=== PATIENT | female | born 1975 | race Caucasian/White ===

== ENCOUNTER 2023-03-28 02:37 | Outpatient (CLI) | payer MEDICAID, SELFPAY ==
--- NOTE | 2023-03-28 07:15 | DI.US_ITS ---
Exam(s) US PELVIS TRANSVAGINAL EXAM: US PELVIS TRANSVAGINAL CLINICAL HISTORY: anatomy,irregular bleeding,n92.6 TECHNIQUE: Ultrasound of the pelvis was performed both transabdominal and transvaginal. COMPARISON: US PELVIS TRANSVAG from 09/16/2017 FINDINGS: UTERUS: Measures 11 cm length x 5 cm AP x 5 cm wide. Multiple relatively small uterine fibroids again noted.A mid anterior myometrium there is a 2 x 2.0 c m fibroid. Anterior fundal region there is a 2.4 x 2.4 cm partially calcified fibroid. In the poste rior myometrium there is a 2 x 2 cm fibroid and there is a 1.5 x 1.3 cm. Endometrial thickness measures 6 mm. There is small amount of fluid in the endometrium cavity and subtle suggestion of a 9 millimeter poly p CERVIX: There are no obvious nabothian cysts. Both ovaries were not visualized on this study. CUL-DE-SAC: No free fluid evident. IMPRESSION: 1. For uterine fibroids, 2 anteriorly into posteriorly, with measurements as above. 2. Small amount of fluid in the endometrial canal noted and there appears to be a possible polyp in t he endometrial canal measuring approximately 9 mm 3. Both ovaries were not able to be identified on this study. 4. No free fluid evident. DATA REPOSITORY:
--- NOTE | 2023-03-28 07:15 | DI.MAMMO_ITS ---
Exam(s) MAMMO SCREENING EXAM: MAMMO SCREENING CLINICAL HISTORY: screening,z12.39. TECHNIQUE: Bilateral full field digital CC and MLO mammographic images were obtained with 3D tomosyn thesis and utilizing computer aided detection (CAD). COMPARISON: Prior outside mammograms were reviewed. FINDINGS: There has been no significant change in the appearance and distribution of the fibroglandular tissue. There are no CAD designations. There are no new spiculated masses nor malignant appearing microcalcification groups. There is no significant architectural distortion nor skin thickening-retraction. IMPRESSION: No radiographic evidence of malignancy. BI-RADS Category 1 - Negative Breast Density - Category A - Almost entirely fatty Breast density Category C or D implies that the patient has dense breast tissue. Dense breast tissue can make it harder to find cancer on a mammogram. Dense breast tissue is also associated with an incr eased risk of breast cancer. This information about the result of the mammogram report was provided to the patient to raise their awareness. Use this report when you speak with the patient about their risks for breast cancer, which includes their family history. At that time, you may recommend additional screening tests (Ultrasoun d or MRI) as these tests may add significant information. A negative radiographic report should not delay biopsy if a dominant or clinically suspicious mass is present. Up to ten percent of cancers are not identified on mammography. A negative report may reinforce clinical impression. Adenosis and dense breasts may obscure an underlying neoplasm. False positive reports average 6 to 10%. Patient will receive a letter notifying them of these results.
== END 2023-03-28 02:57 ==
LOC: DI 02:38
PROVIDERS: PCP Nurse Practitioner Family; Visit Provider Obstetrics & Gynecology
DX: N92.6 Irregular menstruation, unspecified (principal); Z12.31 Encounter for screening mammogram for malignant neoplasm of breast; D25.9 Leiomyoma of uterus, unspecified; N85.8 Other specified noninflammatory disorders of uterus
CPT/HCPCS: 77063; 77067; 76830; 76856

== ENCOUNTER 2023-04-25 02:47 | Outpatient (CLI) | payer MEDICAID, SELFPAY ==
[2023-04-25 13:01] LABS: Abs Immature Grans 0.02 10^3/uL (0.0-0.06); Absolute Basophil Count 0.04 10^3/uL (0.0-0.2); Absolute Eosinophil Count 0.14 10^3/uL (0.0-0.7); Absolute Lymphocyte Count 2.26 10^3/uL (1.2-3.4); Absolute Monocyte Count 0.34 10^3/uL (0.1-0.8); Absolute Neutrophil Count 2.96 10^3/uL (1.2-6.7); Basophils % 0.7; Eosinophils % 2.4; HCT 42.5 % (36.0-46.0); HGB 14.3 g/dL (11.2-15.7); Immature Grans % 0.3; Lymphocytes % 39.2; MCH 31.6 pg (27.0-33.0); MCHC 33.6 % (32.0-36.0); MCV 94 fL (80-95); MPV 10.2 fL (8.0-11.0); Monocytes % 5.9; Neutrophils % 51.5; Platelet Count 287 10^3/uL (130-400); RBC 4.52 10^6/uL (3.93-5.22); RDW 13.6 % (11.7-14.6); RDW-SD 46.2 fL; WBC 5.76 10^3/uL (4.4-10.8)
== END 2023-04-25 02:48 | disposition home or self-care (01) ==
LOC: LBO 02:47
PROVIDERS: PCP Nurse Practitioner Family; Visit Provider Obstetrics & Gynecology
DX: N92.6 Irregular menstruation, unspecified (principal); Z01.818 Encounter for other preprocedural examination; Z01.812 Encounter for preprocedural laboratory examination
CPT/HCPCS: 36415; 86850; 86900; 86901; 84146; 84443; 85025

== ENCOUNTER 2023-04-27 02:39 | Outpatient (CLI) | payer MEDICAID, SELFPAY ==
[2023-04-27 20:03] LABS: Prolactin 13.7 ng/mL (See Note)
== END 2023-04-27 02:40 | disposition home or self-care (01) ==
LOC: LBO 02:39
PROVIDERS: PCP Nurse Practitioner Family; Visit Provider Obstetrics & Gynecology
DX: N92.5 Other specified irregular menstruation (principal)
CPT/HCPCS: 84146

== ENCOUNTER 2023-04-27 08:07 | Day surgery (SDC) | payer MEDICAID, SELFPAY ==
[2023-04-27] VITALS (9 sets, daily range): BP systolic 81–123; BP diastolic 40–78; PULSE 57–73; RESP 12–20; TEMP 36.2–36.7; O2SAT 67–100; BMI 39.9
[2023-04-27] MEDS: Lactated Ringers 1,000 ML 125 ML IV (09:00)
--- NOTE | 2023-04-27 09:07 | W.ANESPRE ---
General Info Date of Service Date Performed: 04/27/23 Height: 5 ft 0.5 in Weight: 94.3 kg Body Mass Index (BMI): 39.9 Surgical Procedure: Operation Date: 04/27/23 09:25 Proposed Procedure Side Surgeon p Dilation & Curettage with Hysteroscopy possible Myosure Anny Gomez DO Meds Allergies and Home Medications Allergies Allergy/AdvReac Type Severity Reaction Status Date / Time fluoxetine HCl [From Prozac] Allergy Intermediate Hives Unverified 04/27/23 08:29 Home Medication Medication Instructions Recorded bupropion HCl 150 mg 24 hr tablet, 150 mg PO DAILY 09/06/17 extended release (Wellbutrin XL) cetirizine 5 mg-pseudoephedrine ER 1 ea PO BID 09/06/17 120 mg tablet,extended release,12hr (Zyrtec-D) citalopram 20 mg tablet 40 mg PO DAILY 09/06/17 levothyroxine 150 mcg tablet 150 mcg PO DAILY 09/06/17 (Synthroid) omeprazole 40 mg capsule,delayed 40 mg PO DAILY 09/06/17 release ranitidine HCl 15 mg/mL oral syrup 150 mg PO DAILY 09/06/17 cetirizine 10 mg capsule (Zyrtec) 10 mg PO BID 12/16/17 cholecalciferol (vitamin D3) 50 2,000 unit PO DAILY 12/16/17 mcg (2,000 unit) capsule (Vitamin D3) epinephrine 0.3 mg/0.3 mL 0.3 mg IM ONCE 12/16/17 injection, auto-injector (EpiPen 2-Jignesh) ketoconazole 2 % shampoo 120 ml topical twice a week 12/16/17 multivitamin (Daily Multi-Vitamin 1 ea PO DAILY 12/16/17 tablet) sumatriptan succinate 50 mg tablet 50 mg PO PRN 12/16/17 (Imitrex) levothyroxine 100 mcg tablet 100 mcg PO DAILY 10/22/22 (Euthyrox) norethindrone acetate 5 mg tablet 5 mg PO BID #90 tabs 02/23/23 (Aygestin) Current Visit Medications: Current Medications Generic Name Dose Route Start Last Admin Trade Name Freq PRN Reason Stop Dose Admin Ringer's Solution 1,000 mls @ 125 mls/hr 04/27/23 06:00 04/27/23 09:00 IV 05/26/23 23:59 125 mls/hr INFUSION VARGAS Administration IV Miscellaneous Supplies 1 each 04/27/23 06:00 Iv Access IV 05/26/23 23:59 DIRECTED VARGAS Sodium Chloride 0 ml 04/27/23 06:00 Normal Saline Flush 10 Ml Syr IV 05/26/23 23:59 PRN PRN Sodium Chloride 0 ml 04/27/23 06:00 Normal Saline 10 Ml Vial IJ 05/26/23 23:59 DIRECTED PRN Sterile Water 0 ml 04/27/23 06:00 Water,Injection,Sterile 10 Ml Vial IJ 05/26/23 23:59 DIRECTED PRN PFSH Active Problems Active Problems: Problem Status Onset Code Uterine fibroid D25.9 Acquired hypothyroidism 09/06/17 E03.9 Anxiety 12/16/17 F41.9 Claustrophobia 12/16/17 F40.240 Depression 12/16/17 F32.9 Diarrhea, unspecified 12/16/17 R19.7 Hyperlipidemia, unspecified 12/16/17 E78.5 Irregular bleeding 09/06/17 N92.6 Migraine 12/16/17 G43.909 Obesity (BMI 30-39.9) 12/16/17 E66.9 Obstructive sleep apnea 12/16/17 G47.33 Snoring 12/16/17 R06.83 Urticaria 12/16/17 L50.9 Medical History Medical History Anxiety state Claustrophobia Depressive disorder Diarrhea Disorder of hyperalimentation Excessive daytime sleepiness GERD (gastroesophageal reflux disease) History of sleeve gastrectomy Hx of mammogram Hyperlipidemia, unspecified Hypothyroid Migraine without aura Morbid obesity with BMI of 40.0-44.9, adult Non-restorative sleep Obesity with body mass index (BMI) of 30.0 to 39.9 Obstructive sleep apnea Other specified hypothyroidism Other symptoms involving skin and integumentary tissues Psoriasis Psychogenic headache Sciatica Snoring Urticaria Witnessed apneic spells Surgical History Surgical History History of tubal ligation Hx of gastric bypass Tobacco Smoking/Tobacco Use Status: Never Alcohol Alcohol Intake: never Substance Use Substance use: Never Substance use type: does not use Prental History History 5 Para 3 Hx # Term Pregnancies 3 Multiple births Hx # Pregnancies Ectopic pregnancies AB induced Hx Number of Living Children 3 AB spontaneous Vital Signs and Lab Results Vital Signs Most Recent Vital Signs in EMR: Most Recent Vital Signs Temp Pulse Resp BP Pulse Ox 36.2 C L 73 18 123/77 98 04/27/23 08:26 04/27/23 08:26 04/27/23 08:26 04/27/23 08:26 04/27/23 08:26 Point of Care Results Point of Care Results: POC- Test(urine) Negative 04/27/23 08:59 Lab Results Blood Type / Crossmatch: Patient ABO/Rh A Negative 04/25/23 Antibody Screen NEGATIVE 04/25/23 Complete Blood Count: White Blood Count 5.76 10^3/uL (4.4-10.8) 04/25/23 12:53 Red Blood Count 4.52 10^6/uL (3.93-5.22) 04/25/23 12:53 Hemoglobin 14.3 g/dL (11.2-15.7) 04/25/23 12:53 Hematocrit 42.5 % (36.0-46.0) 04/25/23 12:53 Platelet Count 287 10^3/uL (130-400) 04/25/23 12:53 Complete Metabolic Panel: No Data to Display Liver Function Panel: No Data to Display Coagulation Panel: No Data to Display Cardiac Panel: No Data to Display Arterial Blood Gas: No Data to Display Venous Blood Gas: No Data to Display Pancreas Panel: No Data to Display Thyroid Panel: Thyroid Stimulating Hormone (TSH) 2.50 uIU/mL (0.36-3.74) 04/25/23 12:53 Infectious Disease: No Data to Display Blood Cultures: No Data to Display Toxicology Panel: No Data to Display Panel: No Data to Display Anesthesia Assessment and Plan Anesthesia History Personal History: No History of Anesthesia Complications Family History: No Family History of Anesthesia Complications Exercise Tolerance Exercise Tolerance: Metabolic Equivalents>4 Pertinent Negatives Pertinent Negatives: No Symptoms of GERD, No Major Cardiovascular Symptoms or Complaints, No Major Pulmonary Symptoms or Complaints and No History of CVA/TIA Cardiac & Pulmonary Exam Cardiac Exam: Normal S1/S2 Heart Sounds Pulmonary Exam: Clear Bilateral Breath Sounds Implantable Cardiac Device Does patient have a Pacemaker or an ICD?: No Airway Exam Known Difficult Airway: No Mallampati Class: 2 Mouth Opening: Normal (> 3cm) Thyromental Distance: Greater than 3 cm Neck Range of Motion: Full ROM Neck Circumference: Normal Teeth Condition: Normal Dentition ASA Classification ASA Score: ASA 3 Emergency Case?: No NPO Status NPO Status: NPO Clears >2 hours, Solids >8 hours Status Status: Negative HCG Anesthesia Plan Resuscitation Status: Full Code Anesthesia Technique: General Anesthesia Airway Planned: Natural Airway Monitors Used: Standard Monitors Preoperative Comments:: 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 Epi pen carried by patient. Requesting records, epi at bedside in OR. Can continue today
--- NOTE | 2023-04-27 09:50 | ENDO_PTH ---
PATIENT: Enrique Villatoro LOC: [facility] U#:[id number] AGE/SX: 47/F ROOM: RE04/27/[address]: Anny Gomez DO : 1975 BED: DIS: 04/27/2023 SPEC #: [id number] RECD: 04/27/23 12:53 STATUS: TESSY REQ #: [id number] RASHEL: 04/27/23 09:[address]: Anny Gomez DEPT: Surgical Specimen RECD BY: Gretchen Farris ENTERED: 04/27/23 12:54 SP TYPE: Endo OTHR DR: Nabor Charles Tissues: 1 - ENDOCERVICAL BX/CURRETTE 2 - ENDOMETRIUM BX/CURRETTE Procedures: GROSS AND MICRO LEVEL 4 Comments: [id number]
--- NOTE | 2023-04-27 10:00 | ROE_ITS ---
Date of service: 04/27/23 Time of Service: 10:00 Operative Note Operative Note DATE OF PROCEDURE: 04/27/23 PRE-OP DIAGNOSIS: Thickened endometrium, endometrial fluid collection, possible polyp POST-OP DIAGNOSIS: same PROCEDURE: Hysteroscopy with dilation and curettage SURGEON: Anny Gomez ANESTHESIA TYPE: General:No Airway Refer to Anesthesia Record ESTIMATED BLOOD LOSS: 10 PATHOLOGY: other (1. Endocervical curettage 2. Endometrial curettage) COMPLICATIONS: None Patient was transported to: same day Patient's condition: stable Indications: heavy menstrual bleeding, thickened endometrium, endometrial fluid collection Findings: [place] endometrium, no discrete polypoid mass. Procedure Description: After full informed consent was obtained, patient was taken the operating suite with an IV running. She is placed in the dorsal supine position and general anesthesia administered. She was then placed in the modified dorsolithotomy position with yellowfin stirrups. Pneumatic compression stockings were placed for DVT prophylaxis. No antibiotic prophylaxis was necessary. Exam under anesthesia revealed a uterus that was midline, mobile, though slightly bulky. Speculum inserted in the posterior vaginal vault. Cervix identified and anteri or lip grasped with a single-tooth tenaculum. Cervical os dilated to the point that a 4 mm hysteroscope could be passed with ease. With instillation of normal saline, endometrial cavity was inspected and noted to be plush but without discrete polypoid masses. At this point, hysteroscope portion was terminated. Endocervical curettage was performed with a Kevorkian curette followed by endometrial curettage with a small banjo curette. There was scant tissue withdrawn. At this point single-tooth tenaculum was removed. Puncture sites were hemostatic. Speculum was removed and the patient was returned to the dorsal supine position and awoke from anesthesia without difficulty. She was taken the same-day surgical area for recovery. Complications: None apparent Findings: [place] endometrium Pathology: 1. Endocervical curettage 2. Endometrial curettage Fluids: Crystalloid per anesthesia, and 115 cc of normal saline with hysteroscope.
[2023-04-27] MEDS: ePHEDrine 25 MG/5 ML Syringe IVP (10:24)
--- NOTE | 2023-04-27 12:00 | W.ANESPOSTOP ---
Postoperative Evaluation Date, Time and Location Date Performed: 04/27/23 Time Performed: 12:00 Patient Location: Day Surgery Unit Vital Signs Most Recent Imported Vital Signs: Most Recent Vital Signs Temp Pulse Resp BP Pulse Ox 36.4 C L 72 18 115/57 L 67 L 04/27/23 11:03 04/27/23 11:03 04/27/23 11:03 04/27/23 11:03 04/27/23 11:03 Pain Score Most Recent Pain Score: Most Recent Pain Score Pain Level 3 04/27/23 11:03 Assessment Mental Status: Awake (Alert & Oriented to Patient Baseline) Airway and Respiratory Function: Patent airway with normal (patient baseline) respiratory exam Cardiovascular Function: Hemodynamically Stable Hydration Status: Adequately Hydrated Nausea & Vomiting: No Nausea or Vomiting Pain: Pain is tolerable per patient Peripheral Nerve Block: Patient did not receive a nerve block
== END 2023-04-27 12:26 | disposition home or self-care (01) ==
PROVIDERS: PCP Registered Nurse; Visit Provider Obstetrics & Gynecology
PROC: 0UDB8ZZ Extraction of Endometrium, Via Natural or Artificial Opening Endoscopic (ICD-10-PCS; CPT 58558; principal; 2023-04-27 09:15)
DX: N92.0 Excessive and frequent menstruation with regular cycle (principal); R93.89 Abnormal findings on diagnostic imaging of other specified body structures
CPT/HCPCS: 58558; 81025; 88305; J0131; J1100; J1885; J2001; J2405; J2704

== ENCOUNTER 2023-12-05 04:58 | Outpatient (CLI) | payer MEDICAID, SELFPAY ==
[2023-12-05 13:39] LABS: Abs Immature Grans 0.03 10^3/uL (0.0-0.06); Absolute Basophil Count 0.05 10^3/uL (0.0-0.2); Absolute Eosinophil Count 0.21 10^3/uL (0.0-0.7); Absolute Lymphocyte Count 1.74 10^3/uL (1.2-3.4); Absolute Monocyte Count 0.43 10^3/uL (0.1-0.8); Absolute Neutrophil Count 3.21 10^3/uL (1.2-6.7); Basophils % 0.9; Eosinophils % 3.7; HCT 38.9 % (36.0-46.0); HGB 13.1 g/dL (11.2-15.7); Immature Grans % 0.5; Lymphocytes % 30.7; MCH 31.3 pg (27.0-33.0); MCHC 33.7 % (32.0-36.0); MCV 93 fL (80-95); Monocytes % 7.6; Neutrophils % 56.6; Platelet Count 256 10^3/uL (130-400); RBC 4.18 10^6/uL (3.93-5.22); RDW 14.2 % (11.7-14.6); RDW-SD 48.7 fL; WBC 5.67 10^3/uL (4.4-10.8)
== END 2023-12-05 04:59 | disposition home or self-care (01) ==
LOC: LBO 04:58
PROVIDERS: PCP Registered Nurse; Visit Provider Obstetrics & Gynecology
DX: Z01.818 Encounter for other preprocedural examination (principal)
CPT/HCPCS: 36415; 86850; 86900; 86901; 85025

== ENCOUNTER 2023-12-07 13:00 | Inpatient (IN) | payer MEDICAID, SELFPAY ==
--- NOTE | 2023-12-06 18:49 | W.ANESPRE ---
General Info Date of Service Date Performed: 12/07/23 Height: 5 ft Weight: 92.986 kg Body Mass Index (BMI): 40.0 Surgical Procedure: Operation Date: 12/07/23 09:25 Proposed Procedure Side Surgeon p Hysterectomy Vaginal Laparoscopic Assist, Salpingectomy, Cysto, Possible DARBY Anny Gomez DO Meds Allergies and Home Medications Allergies Allergy/AdvReac Type Severity Reaction Status Date / Time fluoxetine HCl [From Prozac] Allergy Intermediate Hives Verified 12/07/23 08:11 Home Medication Medication Instructions Recorded bupropion HCl 150 mg 24 hr tablet, 150 mg PO DAILY 09/06/17 extended release (Wellbutrin XL) cetirizine 5 mg-pseudoephedrine ER 1 ea PO BID 09/06/17 120 mg tablet,extended release,12hr (Zyrtec-D) citalopram 20 mg tablet 40 mg PO DAILY 09/06/17 levothyroxine 150 mcg tablet 150 mcg PO DAILY 09/06/17 (Synthroid) omeprazole 40 mg capsule,delayed 40 mg PO DAILY 09/06/17 release cetirizine 10 mg capsule (Zyrtec) 10 mg PO BID 12/16/17 cholecalciferol (vitamin D3) 50 2,000 unit PO DAILY 12/16/17 mcg (2,000 unit) capsule (Vitamin D3) epinephrine 0.3 mg/0.3 mL 0.3 mg IM ONCE 12/16/17 injection, auto-injector (EpiPen 2-Jignesh) ketoconazole 2 % shampoo 120 ml topical twice a week 12/16/17 multivitamin (Daily Multi-Vitamin 1 ea PO DAILY 12/16/17 tablet) sumatriptan succinate 50 mg tablet 50 mg PO PRN 12/16/17 (Imitrex) progesterone micronized 200 mg 400 mg (2 x 200 mg) PO DAILY #180 10/24/23 capsule caps Current Visit Medications: Current Medications Generic Name Dose Route Start Last Admin Trade Name Freq PRN Reason Stop Dose Admin Ringer's Solution 1,000 mls @ 125 mls/hr 12/07/23 06:00 IV 12/07/23 23:59 INFUSION VARGAS Cefazolin Sodium/Dextrose 2 gm in 50 mls @ 100 mls/hr 12/07/23 06:00 Ancef Duplex IVPB 12/07/23 23:59 PREOP VARGAS IV Miscellaneous Supplies 1 each 12/07/23 06:00 Iv Access IV 12/07/23 23:59 DIRECTED VARGAS Sodium Chloride 0 ml 12/07/23 06:00 Normal Saline Flush 10 Ml Syr IV 12/07/23 23:59 PRN PRN Sodium Chloride 0 ml 12/07/23 06:00 Normal Saline 10 Ml Vial IJ 12/07/23 23:59 DIRECTED PRN Sterile Water 0 ml 12/07/23 06:00 Water,Injection,Sterile 10 Ml Vial IJ 12/07/23 23:59 DIRECTED PRN PFSH Active Problems Active Problems: Problem Status Onset Code Mast cell activation, 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 Urticaria 12/16/17 L50.9 Snoring 12/16/17 R06.83 Obstructive sleep apnea 12/16/17 G47.33 Obesity (BMI 30-39.9) 12/16/17 E66.9 Migraine 12/16/17 G43.909 Irregular bleeding 09/06/17 N92.6 Hyperlipidemia, unspecified 12/16/17 E78.5 Diarrhea, unspecified 12/16/17 R19.7 Depression 12/16/17 F32.9 Claustrophobia 12/16/17 F40.240 Anxiety 12/16/17 F41.9 Acquired hypothyroidism 09/06/17 E03.9 Uterine fibroid D25.9 Medical History Medical History 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 Anxiety state Claustrophobia Depressive disorder Diarrhea Disorder of hyperalimentation Excessive daytime sleepiness GERD (gastroesophageal reflux disease) History of sleeve gastrectomy Hx of mammogram Hyperlipidemia, unspecified Hypothyroid Mast cell activation syndrome Urticaria and anaphylaxis Migraine without aura Morbid obesity with BMI of 40.0-44.9, adult Non-restorative sleep Obesity with body mass index (BMI) of 30.0 to 39.9 Obstructive sleep apnea Other specified hypothyroidism Other symptoms involving skin and integumentary tissues Psoriasis Psychogenic headache Sciatica Snoring Urticaria Witnessed apneic spells Surgical History Surgical History History of tubal ligation Hx of gastric bypass Tobacco Smoking/Tobacco Use Status: Never Alcohol Alcohol Intake: never Substance Use Substance use: Never Substance use type: does not use Prental History History 5 Para 3 Hx # Term Pregnancies 3 Multiple births Hx # Pregnancies Ectopic pregnancies AB induced Hx Number of Living Children 3 AB spontaneous Vital Signs and Lab Results Vital Signs Most Recent Vital Signs in EMR: Temp Pulse Resp BP Pulse Ox 36 C L 67 16 140/73 99 12/07/23 08:05 12/07/23 08:05 12/07/23 08:05 12/07/23 08:05 12/07/23 08:05 Lab Results Blood Type / Crossmatch: Patient ABO/Rh A Negative 12/05/23 Antibody Screen NEGATIVE 12/05/23 Complete Blood Count: White Blood Count 5.67 10^3/uL (4.4-10.8) 12/05/23 13:25 Red Blood Count 4.18 10^6/uL (3.93-5.22) 12/05/23 13:25 Hemoglobin 13.1 g/dL (11.2-15.7) 12/05/23 13:25 Hematocrit 38.9 % (36.0-46.0) 12/05/23 13:25 Platelet Count 256 10^3/uL (130-400) 12/05/23 13:25 Complete Metabolic Panel: No Data to Display Liver Function Panel: No Data to Display Coagulation Panel: No Data to Display Cardiac Panel: No Data to Display Arterial Blood Gas: No Data to Display Venous Blood Gas: No Data to Display Pancreas Panel: No Data to Display Thyroid Panel: No Data to Display Infectious Disease: No Data to Display Blood Cultures: No Data to Display Toxicology Panel: No Data to Display Panel: No Data to Display Anesthesia Assessment and Plan Anesthesia History Personal History: No History of Anesthesia Complications Family History: No Family History of Anesthesia Complications Exercise Tolerance Exercise Tolerance: Metabolic Equivalents>4 Pertinent Negatives Pertinent Negatives: No Symptoms of GERD (medication controlled reflux per pt report ), No Major Cardiovascular Symptoms or Complaints, No Major Pulmonary Symptoms or Complaints and No History of CVA/TIA Cardiac & Pulmonary Exam Cardiac Exam: Normal S1/S2 Heart Sounds Pulmonary Exam: Clear Bilateral Breath Sounds Implantable Cardiac Device Does patient have a Pacemaker or an ICD?: No Airway Exam Known Difficult Airway: No Mallampati Class: 4 Mouth Opening: Normal (> 3cm) Thyromental Distance: Less than 3 cm Neck Range of Motion: Full ROM Neck Circumference: Thick Teeth Condition: Normal Dentition ASA Classification ASA Score: ASA 3 Emergency Case?: No NPO Status NPO Status: NPO Clears >2 hours, Solids >8 hours Status Status: Negative HCG Anesthesia Plan Resuscitation Status: Full Code Anesthesia Technique: General Anesthesia Airway Planned: Endotracheal Tube Pain Management: Intrathecal Analgesia (will use dexmed due to MAST cell issues. ) Monitors Used: Standard Monitors Preoperative Comments:: 48 yo female for hysterectomy. Sig PMHx: MAST cell activation (cetirizine, epi), KAYCEE, GERD (omeprazole), migraine/psychogenic headache (imitrex), depression/anxiety/claustrophobia (citalopram, bupropion), hypothyroid (on replacement). never smoker, Previous Anes: - D/C, prop/dex, natural airway, no issues. -discussed risk of mast cell dx and epi immediately available in OR; zyrtec and famotidine given in preop
[2023-12-07] VITALS (19 sets, daily range): BP systolic 126–158; BP diastolic 64–89; PULSE 50–68; RESP 16–20; TEMP 36–37.5; O2SAT 93–99; BMI 40.0
[2023-12-07] MEDS: Lactated Ringers 1,000 ML 125 ML IV ×3 (08:40→23:03)
[2023-12-07] MEDS: Cetirizine 10 MG TAB PO ×3 (08:52→20:33)
[2023-12-07] MEDS: FAMOTIDINE 20 MG/50 ML BAG 200 MG IVPB (09:06)
[2023-12-07] MEDS: ceFAZolin 2 GM/50 ML BAG IVPB (10:03)
[2023-12-07] MEDS: Bupivacaine 0.5% Pres-Free 30 ML VIAL (10:36)
--- NOTE | 2023-12-07 11:50 | UTER_PTH ---
PATIENT: Enrique Villatoro LOC: [id number]#:[id number] AGE/SX: 48/F ROOM: 216 RE12/07/[address]: Anny Gomez DO : 1975 BED: A DIS: 12/08/2023 SPEC #: [id number] RECD: 12/07/23 17:16 STATUS: SOUT REQ #: [id number] RASHEL: 12/07/23 11:[address]: Anny Gomez DEPT: Surgical Specimen RECD BY: Gretchen Farris ENTERED: 12/07/23 17:18 SP TYPE: UTER OTHR DR: Nabor Charles Tissues: 1 - UTERUS W OR W/O OVARIES(NOT TUMOR/PROLAPSE) Procedures: GROSS AND MICRO LEVEL 5 DECALCIFICATION Comments: [id number]
[2023-12-07] MEDS: Cellulose,Oxidized 4X8 1 PACKET MC (12:30)
--- NOTE | 2023-12-07 12:46 | W.PM.OP ---
Date of service: 12/07/23 Time of Service: 12:47 Operative Note Operative Note DATE OF PROCEDURE: 12/07/23 PRE-OP DIAGNOSIS: Symptomatic uterine fibroids, abnormal uterine bleeding POST-OP DIAGNOSIS: same PROCEDURE: Laparoscopically assisted vaginal hysterectomy, bilateral salpingectomy, bladder cystoscopy SURGEON: Anny Gomez ASSISTING SURGEON: Wanda George ANESTHESIA TYPE: Local By Surgeon, General LMA/ETT and Spinal Refer to Anesthesia Record ESTIMATED BLOOD LOSS: 200 PATHOLOGY: other (Bilateral fallopian tube remnants, uterus, cervix) COMPLICATIONS: None Patient was transported to: PACU Patient's condition: stable Indications: Ongoing heavy vaginal bleeding, symptomatic uterine fibroids. Findings: 12 to 14-week size bulky globular fibroid uterus, normal-appearing ovaries, remnant of the fimbriated end of the fallopian tubes bilaterally. No other intra-abdominal or pelvic pathology noted. Postoperative cystoscopy revealed a bladder that was atraumatic, and bilateral E flux from the ureteric orifice ease Procedure Description: After full informed consent was obtained, patient was taken the operating room with an IV running. She was placed in the seated position and spinal anesthesia administered for postoperative pain management. She was then placed in the dorsal supine position and endotracheal intubation performed for the administration of general anesthesia with ease. The patient received 2 g of Ancef for surgical site infection prophylaxis. She had pneumatic compression stockings placed for DVT prophylaxis. She was then placed in the modified dorsal lithotomy position in [facility] and exam under anesthesia revealed a uterus that was globular, approximately 12 to 14 weeks size, midline, and mobile. She was then prepped and draped in the usual sterile fashion and a timeout was held. Narvaez catheter was inserted for continuous bladder drainage. A speculum was inserted into the posterior vaginal vault and a ZUMI uterine manipulator was placed for intraoperative uterine manipulation. At this point speculum was removed and attention was turned to the abdomen Half percent Marcaine was used to infiltrate at the umbilical area and through her previous incision, a transverse incision was made at the umbilicus. Penetrating towel clamps were used to elevate the anterior abdominal wall and a Veress needle inserted into the abdomen. With a maximum pressure of 15 mmHg of CO2 gas, a pneumoperitoneum was created. Under direct visualization with a 12 mm bladeless trocar, the abdomen was entered. The entire abdomen and pelvis were inspected and noted to be free of trauma. There were 2 small adhesion bands of the omentum to the left and right pelvic sidewalls respectively. The uterus was globular, fibroid, and bulky. They were fallopian tube remnants bilaterally, and ovaries appeared normal bilaterally. At this point a second and third right and left lower quadrant trocar site were placed after infiltration of half percent Marcaine under direct visualization. These were 5 mm ports. Initially attention was turned to the left fallopian tube remnant which was cautery transected and removed through the 10 mm port and a similar procedure was carried out on the right fallopian tube remnant. At this point, the utero-ovarian ligament was identified cautery transected and ligated and the left round ligament was cautery transected and ligated. The anterior leaf of the broad ligament was entered and the bladder flap created to the midline. There was noted to be 1 area that was not hemostatic, a uterine vein that had been opened which was cauterized and noted to be hemostatic. At this point attention was turned to the right utero-ovarian ligament which was cautery transected and ligated in the right round ligament again cautery transected and ligated. The anterior leaf of the right broad ligament was then elevated for creation of the remainder of the bladder flap. The right uterine vein and artery were cauterized, followed by the left uterine artery and vein. At this point, with appropriate hemostasis attention was turned to the vaginal vault. Pneumoperitoneum was released. The uterine manipulator was removed from the uterus and cervix and a weighted speculum placed into the posterior vaginal vault. Jack clamps were used to grasp the anterior and posterior lip of the cervix and a circumferential incision was made at the cervical vaginal interface. Initially there was some moderate difficulty in entering the posterior cul-de-sac so anterior cul-de-sac was entered with meticulous sharp dissection. The right and left uterosacral cardinal complex were grasped with a Zeppelin clamp, transected and ligated. At this point the posterior cul-de-sac could be entered with sharp dissection and a weighted speculum placed there in. In a systematic fashion the right and left uterine vessels were clamped transected and ligated. This allowed delivery of the uterus through the posterior vaginal vault. There was 1 area at the left uterine pedicle that was not hemostatic which was clamped, and suture-ligated. The remainder of the pedicles were noted to be hemostatic. Incorporating the uterosacral cardinal complex into the vaginal cuff with a running locked horizontal stitch, the vaginal cuff was then closed. Attention was then returned to the abdomen. Pneumoperitoneum recreated and the pedicles inspected along with the vaginal cuff. There was noted to be a slight amount of oozing from the posterior peritoneal edge at the posterior cul-de-sac which 3 clips were placed, followed by cautery. The pneumoperitoneum was released to low pressure to 5 mmHg and pedicles appeared hemostatic. There was a slight amount of ooze from the denuded area in the posterior cul-de-sac and a piece of Surgicel placed there on. This was appropriate in achieving hemostasis. Pneumoperitoneum was released and the patient was returned to the dorsal supine position and the 5 mm trocars were removed under direct visualization followed by the 10 mm trocar. The fascial incision at the umbilicus was closed with a simple interrupted suture of 0 Vicryl with direct visualization of the superior and inferior leaf of this fascial incision. Skin edges were reapproximated with 4-0 undyed Monocryl and Steri-Strips and sterile dressings were placed. Patient received indigocarmine intravascularly for assistance in visualizing the ureteric jets from the bladder. Cystoscopy was performed after instillation of normal saline. There was no evidence of trauma or suture penetration into the bladder. Both the right and left ureteric orifice ease were jetting blue dye to urine without difficulty. With assurance that the bladder, and ureters were intact and on damage the procedure was then terminated. Narvaez catheter was again reinserted into the bladder for continuous bladder drainage. Patient was returned to the dorsal supine position and awoke from anesthesia with ease. She was taken to the recovery room in stable condition with her Narvaez catheter draining blue-tinged urine. Complications: None apparent Findings: 12 to 14 weeks size globular fibroid uterus, normal-appearing ovaries bilaterally, fallopian tube remnants. No other abdominal or pelvic pathology noted. Atraumatic bladder, ureter jets noted bilaterally EBL: 200 mL Fluids: Crystalloid per anesthesia Pathology: Bilateral fallopian tube remnants, uterus, cervix.
[2023-12-07] MEDS: fentaNYL 100 MCG/2 ML VIAL IVP (13:42)
--- NOTE | 2023-12-07 14:40 | W.ANESPOSTOP ---
Postoperative Evaluation Date, Time and Location Date Performed: 12/07/23 Time Performed: 13:45 Patient Location: PACU Vital Signs Most Recent Imported Vital Signs: Most Recent Vital Signs Temp Pulse Resp BP Pulse Ox 36.5 C 58 L 18 137/80 95 12/07/23 14:31 12/07/23 14:31 12/07/23 14:31 12/07/23 14:31 12/07/23 14:31 Pain Score Most Recent Pain Score: Most Recent Pain Score Pain Level 5 12/07/23 14:31 Assessment Mental Status: Awake (Alert & Oriented to Patient Baseline) Airway and Respiratory Function: Patent airway with normal (patient baseline) respiratory exam Cardiovascular Function: Hemodynamically Stable Hydration Status: Adequately Hydrated Nausea & Vomiting: No Nausea or Vomiting Pain: Pain is tolerable per patient Peripheral Nerve Block: Patient did not receive a nerve block
[2023-12-07] MEDS: Ketorolac 30 MG/ML VIAL 15 MG IVP ×2 (16:15→22:16)
[2023-12-07] MEDS: Normal Saline Flush 10 ML SYR IV ×3 (16:16→22:16)
--- NOTE | 2023-12-07 17:19 | PGE_ITS ---
Date of Service Date of service: 12/07/23 Time of Service: 17:20 Assessment and Plan Assessment and plan (1) Status post laparoscopic assisted vaginal hysterectomy (LAVH): Status: Acute Assessment and plan: Postop day 0. Doing well. Increase activity, regular diet. Monitor vital signs. Pain control as needed. All questions answered. Subjective Subjective Interval history since last seen: Patient seen and examined approximately 5 hours after her surgical procedure t mikayla. Surgery explained to the patient and her . Overall doing well. Pain is well-controlled. No nausea. Narvaez catheter in place with somewhat concentrated urine. Vitals are stable. Abdomen is soft and nontender. Anticipate routine postoperative care. Probable discharge Objective Last Vital Signs Temp 98.2 F 12/07/23 16:36 Pulse 59 L 12/07/23 16:36 Resp 18 12/07/23 16:36 BP 137/84 12/07/23 16:36 Pulse Ox 96 12/07/23 16:36 Time Spent with Patient Time Spent with Patient: 25-34 minutes Time was spent: preparing to see the patient(eg.review tests), obtaining and/or reviewing separately otained hiistory, referring, communicating with other health acute care nursing assistant and counseling the patient
[2023-12-07] MEDS: Ibuprofen 600 MG TAB PO (17:50)
--- NOTE | 2023-12-07 20:00 | RESPIRATORY ---
RT has seen pt. for KAYCEE diagnosis. Pt. advised that she does not use CPAP machine anymore. She states she quitted 5 years ago using CPAP due to discomfort.
[2023-12-07] MEDS: oxyCODONE 5 mg/Acetaminophen 325 mg TAB PO (20:32)
[2023-12-07] MEDS: Docusate Sodium 100 MG CAP PO (20:33)
[2023-12-08 03:04] VITALS: BP 137/81; PULSE 61; RESP 18; TEMP 36.6; O2SAT 97
[2023-12-08] MEDS: Ketorolac 30 MG/ML VIAL 15 MG IVP ×2 (03:24→08:47)
[2023-12-08] MEDS: Levothyroxine 150 MCG TAB PO (05:24)
[2023-12-08 06:34] LABS: HCT 35.3 % (36.0-46.0); HGB 11.8 g/dL (11.2-15.7); MCH 30.6 pg (27.0-33.0); MCHC 33.4 % (32.0-36.0); MCV 92 fL (80-95); MPV 9.8 fL (8.0-11.0); Platelet Count 281 10^3/uL (130-400); RBC 3.86 10^6/uL (3.93-5.22); RDW 13.4 % (11.7-14.6); RDW-SD 45.4 fL; WBC 10.29 10^3/uL (4.4-10.8)
--- NOTE | 2023-12-08 07:15 | PGE_ITS ---
Date of Service Date of service: 12/08/23 Time of Service: 07:15 Assessment and Plan Assessment and plan (1) Status post laparoscopic assisted vaginal hysterectomy (LAVH): Status: Acute Assessment and plan: Postop day #1 status post laparoscopically assisted vaginal hysterectomy and bilateral salpingectomy for symptomatic uterine fibroids. Doing well. Stable vital signs. Stable hemoglobin. Narvaez catheter out today, ambulate, anticipate discharge in the day. Prescription sent to the pharmacy. All questions answered. Subjective Subjective Interval history since last seen: Patient seen and examined this morning. Reasonably good night over the night. She did had an episode of increased pain which responded nicely to pain medications. Her vital signs are stable. Her urine output is appropriate. Hemoglobin this morning is stable at 11.8 with an appropriate drop. The plan will be for discontinuing her Narvaez catheter this morning, ambulate, regular diet, anticipate discharge home once voiding without difficulty Exam Narrative Exam Narrative: Alert, oriented Patient seen and care discussed with nursing staff Const General: cooperative, healthy appearing, comfortable and no acute distress HENMT Head: normal to inspection Resp Effort & Inspection: normal respiratory effort, no audible wheezes and no cough Cardio Rate: regular rate Rhythm: regular rhythm GI Inspection: normal to inspection, no edema, non-distended and incision (Dressed) Palpation: soft Skin Lesions: no lesions Extrem General: normal to inspection, no clubbing, cyanosis or edema and no calf tenderness bilaterally Objective Last Vital Signs Temp 97.9 F 12/08/23 03:04 Pulse 61 12/08/23 03:04 Resp 18 12/08/23 03:04 BP 137/81 12/08/23 03:04 Pulse Ox 97 12/08/23 03:04 Laboratory Results - last 24 hr 12/08/23 06:02 WBC 10.29 RBC 3.86 L Hgb 11.8 Hct 35.3 L MCV 92 MCH 30.6 MCHC 33.4 RDW 13.4 Plt Count 281 MPV 9.8 Time Spent with Patient Time Spent with Patient: 25-34 minutes Time was spent: preparing to see the patient(eg.review tests), obtaining and/or reviewing separately otained hiistory, referring, communicating with other [facility] hiv/aids care nurse, indepentently interpreting results and counseling the patient
--- NOTE | 2023-12-08 07:26 | W.PM.DS.N ---
Date of service: 12/08/23 Time of Service: 07:26 DS: Diagnosis Discharge Diagnosis (1) Status post laparoscopic assisted vaginal hysterectomy (LAVH): Status: Acute Discharge Plan Disposition Patient Disposition: Home Condition: Good Discharge Details Reason For Visit: [facility] Admit Date/Time: 12/07/23 13:00 Admit Provider: Anny Gomez Attending Provider: Anny Gomez Primary Care Provider: Nabor Charles Hospital Course Hospital Course: Patient underwent a laparoscopically assisted vaginal hysterectomy with bilateral salpingectomy on 12/07/2023. She had a markedly enlarged bulky fibroid uterus. Normal intraoperative blood loss. She was transitioned from parenteral pain medication to oral pain medication and is ambulating, tolerating regular diet with stable vitals on discharge. Pathology is pending. At discharge hemoglobin 11.8. Home Meds and New Rx's Prescriptions: New ibuprofen 800 mg tablet 800 mg PO Q8H PRNQty: 60 1RF oxycodone-acetaminophen [Percocet] 5-325 mg tablet 1 tab PO Q8H PRNQty: 7 0RF docusate sodium [Colace] 100 mg capsule 100 mg PO DAILY Qty: 30 0RF Continued cetirizine-pseudoephedrine [Zyrtec-D] 1 EACH tablet extended release 12 hr 1 ea PO BID omeprazole 40 MG capsule,delayed release(DR/EC) 40 mg PO DAILY levothyroxine [Synthroid] 150 MCG tablet 150 mcg PO DAILY bupropion HCl [Wellbutrin XL] 150 MG tablet extended release 24 hr 150 mg PO DAILY multivitamin [Daily Multi-Vitamin] 1 EACH tablet 1 ea PO DAILY ketoconazole 120 ML shampoo 120 ml Topical twice a week epinephrine [EpiPen 2-Jignesh] 0.3 MG/0.3 ML auto-injector 0.3 mg IM ONCE cholecalciferol (vitamin D3) [Vitamin D3] 2,000 UNIT capsule 2,000 unit PO DAILY sumatriptan succinate [Imitrex] 50 MG tablet 50 mg PO PRN Zyrtec 10 MG capsule 10 mg PO BID citalopram 40 mg tablet 40 mg PO DAILY Discontinued progesterone micronized 200 mg capsule 400 mg PO DAILY Qty: 180 3RF Discharge Instructions Stand Alone Forms: [employer] SurgeryW/Incision Activity:: Pelvic rest, no heavy lif Equipment/Supplies:: No Equipment Needed Diet:: As Tolerated Discharge Orders Discharge Orders: Discharge Order (Routine); Ordered 12/08/23 Ordered By: Anny Gomez DS: Summary Time Spent with Patient providing and/or coordinating discharge services: Greater than 30 minutes Status at Discharge Functional status at discharge: independent ambulation Overall status at discharge: patient is progressing back to baseline Mental Status: mental status grossly normal Speech and Movement: speech and movement normal Mood: congruent mood Affect: normal affect Quality:SDOH Health Related Social Needs: No Data to Display Exam Narrative Exam Narrative: See physical exam from progress note dated 12/08/2023 Psych Mental Status: mental status grossly normal Speech and Movement: speech and movement normal Mood: congruent mood Affect: normal affect DS: Data Vitals/I&O Vitals and I&O: Vital Signs Temperature 97.9 F 12/08/23 03:04 Temperature Source Tympanic 12/08/23 03:04 Pulse 61 12/08/23 03:04 Pulse Rhythm Regular 12/08/23 00:25 Respiratory Rate 18 12/08/23 03:04 Respiratory Effort Normal, Non-Labored 12/08/23 00:25 Respiratory Depth Normal 12/08/23 00:25 Respiratory Pattern Normal 12/08/23 00:25 Blood Pressure 137/81 12/08/23 03:04 Pulse Oximetry 97 12/08/23 03:04 Respiratory End-tidal CO2 39 12/07/23 14:00 Oxygen Delivery Method Room Air 12/08/23 03:04 Oxygen Flow Rate 0 12/08/23 03:04 Pain Level 3 12/08/23 03:24 Intake & Output 12/07/23 12/07/23 12/08/23 11:59 23:59 11:59 Intake Total 50 / 2675.000 2625.000 / 2675.000 402.5 / 402.5 Output Total 1999 / 1999 950 / 950 Balance 50 / 675.000 625.000 / 675.000 -547.5 / -547.5 Weight 209 lb 14.081 oz Intake: IV 50 / 7561.411 4427.000 / 1875.000 162.5 / 162.5 Oral 800 / 800 240 / 240 Output: Urine 1800 / 1800 950 / 950 Estimated Blood Loss 200 / 200 Other: Urine Color Straw Pale Yellow Yellow Urine Appearance Clear Clear Comment Urine blue in color from contrast dye. Urine in tubing is now clear in color. Emesis Description None Voiding Methods Indwelling Catheter Data Completed and Pending Labs on day of discharge: Labs from last 24 hours 12/08/23 06:02 WBC 10.29 RBC 3.86 L Hgb 11.8 Hct 35.3 L MCV 92 MCH 30.6 MCHC 33.4 RDW 13.4 Plt Count 281 MPV 9.8 PFSH All Active Problems (Updated 12/08/23 @ 07:17 by Anny Gomez DO) Status post laparoscopic assisted vaginal hysterectomy (LAVH) (Acute) LAVH with bilateral salpingectomy 12/07/2023. Secondary to symptomatic uterine fibroids, and abnormal uterine bleeding. Mast cell activation, unspecified (Acute) Seen by Linus Schofield Allergy in [place]. History of Urticaria and anaphylaxis. 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 Urticaria and anaphylaxis Hx of mammogram Other symptoms involving skin and integumentary tissues Sciatica Psychogenic headache Psoriasis Hypothyroid GERD (gastroesophageal reflux disease) Disorder of hyperalimentation Excessive daytime sleepiness Obesity with body mass index (BMI) of 30.0 to 39.9 Depressive disorder Witnessed apneic spells Morbid obesity with BMI of 40.0-44.9, adult Snoring History of sleeve gastrectomy Hyperlipidemia, unspecified Diarrhea Claustrophobia Anxiety state Migraine without aura Urticaria Other specified hypothyroidism Obstructive sleep apnea Non-restorative sleep Surgical History (Updated 12/07/23 @ 13:02 by Anny Gomez DO) History of tubal ligation Hx of gastric bypass Family History Mother Essential hypertension Father Depression Heart disease Myocardial infarction 40's Brother Hypertension Grandmother , [place] at age 80. Myocardial infarction in her 80's from an [place] Breast cancer Other Obesity Substance abuse Social History Smoking/Tobacco Use Status: Never Smoking risk assessment performed?: Yes Alcohol Intake: never Drug use: Never Substance use type: does not use Housing: house Do you feel safe at home: Yes Do you feel safe in your relationship?: Yes History History 5 Para 3 Hx # Term Pregnancies 3 Multiple births Hx # Pregnancies Ectopic pregnancies AB induced Hx Number of Living Children 3 AB spontaneous Time Spent with Patient Time Spent with Patient: <45 minutes Time was spent: preparing to see the patient(eg.review tests), obtaining and/or reviewing separately otained hiistory, ordering medications,tests, procedures, indepentently interpreting results, counseling the patient and care coordination
[2023-12-08 07:32] VITALS: BP 140/81; PULSE 64; RESP 16; TEMP 37; O2SAT 97
[2023-12-08] MEDS: buPROPion-XL 150 MG TABCR PO (08:46)
[2023-12-08] MEDS: Cetirizine 10 MG TAB PO (08:46)
[2023-12-08] MEDS: Docusate Sodium 100 MG CAP PO (08:47)
[2023-12-08] MEDS: Omeprazole 20 MG CAPCR 40 MG PO (08:47)
[2023-12-08] MEDS: Citalopram 20 MG TAB 40 MG PO (08:47)
--- NOTE | 2023-12-08 09:25 | PDOC.CMIN ---
Date of service: 12/08/23 Time of Service: 09:25 Care Management Initial Assmt Initial Assessment REASON FOR HOSPITALIZATION:: LAVH PREVIOUS FUNCTIONAL STATUS/SOCIAL/FAMILY SUPPORTS:: Enrique lives in [place] [place] [facility]. with her ans 2 sons. 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 She is independent at baseline and does not receive any community services. CURRENT FUNCTIONAL STATUS:: Enrique was sitting up in bed when CM met with her. She was pleasant and agreeable to conversation. She shared that she expects to be discharged later today if she continue to do well. ADVANCE DIRECTIVES:: Has not completed. Given forms to take home. CM offered to assist with completion if needed. Has patient been provided with info about the portal/API?: Yes Did the patient sign up for the portal?: No CODE STATUS:: Full Code INSURANCE COVERAGE / FINANCIAL ISSUES:: Medicaid CURRENT HOME/COMMUNITY SERVICES/EQUIPMENT:: none PRIMARY CARE PHYSICIAN:: Nabor Charles POTENTIAL DISCHARGE NEEDS:: follow up with ART PROFESSOR PATIENT/FAMILY EDUCATION NEEDS:: Review of discharge instructions, limitations, follow up plan, discuss Ask Me Three TRANSPORTATION:: via private vehicle with PLAN:: Enrique will be discharged home with no new services. She will follow up with her surgeon and plan of care and transport with her . PFSH All Active Problems (Updated 12/08/23 @ 07:17 by Anny Gomez DO) Status post laparoscopic assisted vaginal hysterectomy (LAVH) (Acute) LAVH with bilateral salpingectomy 12/07/2023. Secondary to symptomatic uterine fibroids, and abnormal uterine bleeding. Mast cell activation, unspecified (Acute) Seen by Linus Chandu Allergy in [place]. History of Urticaria and anaphylaxis. 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 Urticaria and anaphylaxis Hx of mammogram Other symptoms involving skin and integumentary tissues Sciatica Psychogenic headache Psoriasis Hypothyroid GERD (gastroesophageal reflux disease) Disorder of hyperalimentation Excessive daytime sleepiness Obesity with body mass index (BMI) of 30.0 to 39.9 Depressive disorder Witnessed apneic spells Morbid obesity with BMI of 40.0-44.9, adult Snoring History of sleeve gastrectomy Hyperlipidemia, unspecified Diarrhea Claustrophobia Anxiety state Migraine without aura Urticaria Other specified hypothyroidism Obstructive sleep apnea Non-restorative sleep Surgical History (Updated 12/07/23 @ 13:02 by Anny Gomez DO) History of tubal ligation Hx of gastric bypass Family History Mother Essential hypertension Father Depression Heart disease Myocardial infarction 40's Brother Hypertension Grandmother , [place] at age 80. Myocardial infarction in her 80's from an [place] Breast cancer Other Obesity Substance abuse Social History Smoking/Tobacco Use Status: Never Smoking risk assessment performed?: Yes Alcohol Intake: never Drug use: Never Substance use type: does not use Housing: house Do you feel safe at home: Yes Do you feel safe in your relationship?: Yes History History 5 Para 3 Hx # Term Pregnancies 3 Multiple births Hx # Pregnancies Ectopic pregnancies AB induced Hx Number of Living Children 3 AB spontaneous SDOH(Care Management) Screening Will the Patient Participate in the Screening?: Yes Do you worry about having a steady place to live?: no In the past 12 months, have you had to go without electric, gas, oil or water in your home?: no Have you or anyone in your house had to go without enough food to eat?: no Has lack of transportation kept you from medical appointments or from doing things needed for daily living?: no Has anyone in your support network made you feel unsafe for any reason?: no
[2023-12-08] MEDS: oxyCODONE 5 mg/Acetaminophen 325 mg TAB PO (09:30)
[2023-12-08 11:55] VITALS: BP 150/83; PULSE 64; RESP 17; TEMP 36.8; O2SAT 97
== END 2023-12-08 14:17 | disposition home or self-care (01) | DRG 742 ==
LOC: MS 14:20
PROVIDERS: Admitting Provider Obstetrics & Gynecology; PCP Registered Nurse; Visit Provider Obstetrics & Gynecology
PROC: 0UT9FZZ Resection of Uterus, Via Natural or Artificial Opening With Percutaneous Endoscopic Assistance (ICD-10-PCS; CPT 58553; principal; 2023-12-07 09:15)
DX: D25.9 Leiomyoma of uterus, unspecified (principal); Z68.41 Body mass index [BMI] 40.0-44.9, adult; N92.6 Irregular menstruation, unspecified; G47.33 Obstructive sleep apnea (adult) (pediatric); E66.9 Obesity, unspecified; G43.909 Migraine, unspecified, not intractable, without status migrainosus; E78.5 Hyperlipidemia, unspecified; F32.A Depression, unspecified; F41.9 Anxiety disorder, unspecified; E03.9 Hypothyroidism, unspecified; K21.9 Gastro-esophageal reflux disease without esophagitis; Z98.84 Bariatric surgery status; L40.9 Psoriasis, unspecified; F40.240 Claustrophobia; D89.40 Mast cell activation, unspecified; Z79.899 Other long term (current) drug therapy
CPT/HCPCS: 58553; 36415; 81025; 85027; 88307; 88311; J0131; J0171; J0665; J0690; J1100; J1885; J2001; J2250; J2405; J2704; J3010; J3475

== ENCOUNTER 2023-12-12 19:23 | Inpatient (IN) | payer MEDICAID, SELFPAY ==
[2023-12-12 19:25] VITALS: BP 114/78; PULSE 101; RESP 18; TEMP 37.1; O2SAT 96
--- NOTE | 2023-12-12 19:30 | DI.CT_ITS ---
Exam(s) CT ABDOMEN PELVIS W EXAM: CT ABDOMEN PELVIS W CLINICAL HISTORY: post-op fever TECHNIQUE: Imaging Protocol: Axial computed tomography images with coronal and sagittal reformatted images were created and reviewed. CONTRAST MATERIAL: Intravenous: Omnipaque 350 Contrast volume:100 mL Oral: No COMPARISON: No exams were available for comparison FINDINGS: ABDOMEN: Lung Bases: There is a small hiatal hernia. Postsurgical changes are seen at the gastroesophageal ju nction. There is atelectasis in the lung bases. Liver: Normal density. No measurable mass. Enlarged liver. Portal, Superior Mesenteric, and Splenic Veins: Unremarkable. Gallbladder and Biliary Tract: No radiodense calculus or dilation. Pancreas: Normal density, no abnormal calcifications or inflammatory process. Spleen: Normal. Adrenals: No masses seen. Kidneys: Normal size, contour and axis. No radiodense stones or obstructive uropathy. No masses seen. Abdominal Aorta: Abdominal portion non-dilated. Bowel: There is mild bowel wall thickening seen in the sigmoid colon adjacent to the postsurgical sit e in the pelvis. The findings are suggestive of colitis. There is no evidence of bowel obstruction. No evidence of appendicitis. Peritoneal Cavity: No ascites, collection or mesenteric inflammatory response. No free air. Lymph Nodes: Within normal limits. Bones: Within normal limits for the patient's age. Soft Tissues: There is a small amount of air seen in the anterior abdominal wall which is likely post surgical. No fluid collection is seen in the soft tissues. PELVIS: Bladder: There is mild thickening of the wall of the posterior urinary bladder adjacent to the inflam ed postsurgical changes in the pelvis. Reproductive Organs: The patient is status post hysterectomy. There is a 7.7 x 4.8 cm air-fluid christi ection in the surgical bed suspicious for an abscess. Inflammatory changes are seen in the soft tiss ues surrounding the fluid collection. The ovaries are visualized bilaterally. Lymph Nodes: Within normal limits. Bones: Within normal limits for the patient's age. IMPRESSION: 1. 7.7 x 4.8 cm air-fluid collection in the surgical bed in the pelvis consistent with an abscess. 2. Thickening of the wall of the adjacent sigmoid colon and posterior urinary bladder likely reflecti ng infection (colitis and cystitis) due to the abscess. 3. There is a mottled appearance of the debris seen within the abscess similar to stool raising the q uestion of a communication/fistula between the colon and abscess. RADIATION DOSE DELIVERED: 1,260.68mGy.cm Total DLP DATA REPOSITORY: All CT scans at this facility are submitted to the National Radiology Data Registry (NRDR) Dose Index Registry (DIR) with the [employer] ([employer]). RADIATION OPTIMIZATION: All CT scans at this facility use at least one of these dose optimization te chniques: automated exposure control; mA and/or kV adjustment per patient size (includes targeted exa ms where dose is matched to clinical indication); or iterative reconstruction.
[2023-12-12 19:34] VITALS: BP 114/78; PULSE 101; RESP 18; TEMP 37.1; O2SAT 96
--- NOTE | 2023-12-12 19:34 | ED.GENADUL_ITS ---
Discharge Plan Disposition Patient Disposition: Admit to [facility] Condition: Stable Discharge Details Clinical Impression: Postoperative abscess of pelvis in female, Postoperative fever Primary Care Provider: Nabor Charles ED Provider: Myke Bliss Home Meds and New Rx's Prescriptions: No Action cetirizine-pseudoephedrine [Zyrtec-D] 1 EACH tablet extended release 12 hr 1 ea PO BID omeprazole 40 MG capsule,delayed release(DR/EC) 40 mg PO DAILY levothyroxine [Synthroid] 150 MCG tablet 150 mcg PO DAILY bupropion HCl [Wellbutrin XL] 150 MG tablet extended release 24 hr 150 mg PO DAILY multivitamin [Daily Multi-Vitamin] 1 EACH tablet 1 ea PO DAILY epinephrine [EpiPen 2-Jignesh] 0.3 MG/0.3 ML auto-injector 0.3 mg IM ONCE cholecalciferol (vitamin D3) [Vitamin D3] 2,000 UNIT capsule 2,000 unit PO DAILY sumatriptan succinate [Imitrex] 50 MG tablet 50 mg PO PRN Zyrtec 10 MG capsule 10 mg PO BID oxycodone-acetaminophen [Percocet] 5-325 mg tablet 1 tab PO Q8H MDD 4 PRN (Reason: pain) Qty: 7 0RF citalopram 40 mg tablet 40 mg PO DAILY ibuprofen 800 mg tablet 800 mg PO Q8H PRNQty: 60 1RF docusate sodium [Colace] 100 mg capsule 100 mg PO DAILY Qty: 30 0RF famotidine 20 mg tablet 20 mg PO BID Patient Comments: TAKE 1 TABLET BY MOUTH TWICE DAILY pantoprazole 40 mg tablet,delayed release (DR/EC) 40 mg PO BID Patient Comments: TAKE 1 TABLET BY MOUTH TWICE DAILY HPI General Date/Time Provider Initiated Documentation: 12/12/23 19:33 . HPI Narrative: 48 year-old female presents to ED today by POV/ambulating with her with a chief complaint of history of lap hysterectomy here at [facility] last , with pain suprapubically and fever developing today- phoned OBGYN Dr. Gomez who encouraged presentation with onset of fever today. Quality described as lower abdominal pain, mild fever earlier today- currently afebrile on ibuprofen, no radiation to nausea/vomiting, black/bloody stools, yousuf vaginal bleeding. Severity is described as 8-10/10. Palliating factors include ibuprofen with some relief. Provoking factors include nothing specific. Patient not anticoagulated. Related Data Home Medications Medication Instructions Recorded Confirmed bupropion HCl 150 mg 24 hr tablet, 150 mg PO DAILY 09/06/17 12/12/23 extended release (Wellbutrin XL) cetirizine 5 mg-pseudoephedrine ER 1 ea PO BID 09/06/17 12/12/23 120 mg tablet,extended release,12hr (Zyrtec-D) levothyroxine 150 mcg tablet 150 mcg PO DAILY 09/06/17 12/12/23 (Synthroid) omeprazole 40 mg capsule,delayed 40 mg PO DAILY 09/06/17 12/12/23 release cetirizine 10 mg capsule (Zyrtec) 10 mg PO BID 12/16/17 12/12/23 cholecalciferol (vitamin D3) 50 2,000 unit PO DAILY 12/16/17 12/12/23 mcg (2,000 unit) capsule (Vitamin D3) epinephrine 0.3 mg/0.3 mL 0.3 mg IM ONCE 12/16/17 12/12/23 injection, auto-injector (EpiPen 2-Jignesh) multivitamin (Daily Multi-Vitamin 1 ea PO DAILY 12/16/17 12/12/23 tablet) sumatriptan succinate 50 mg tablet 50 mg PO PRN 12/16/17 12/12/23 (Imitrex) citalopram 40 mg tablet 40 mg PO DAILY 12/07/23 12/12/23 docusate sodium 100 mg capsule 100 mg PO DAILY #30 caps 12/08/23 12/12/23 (Colace) ibuprofen 800 mg tablet 800 mg PO Q8H PRN #60 tabs 12/08/23 12/12/23 famotidine 20 mg tablet 20 mg PO BID 12/12/23 12/12/23 oxycodone-acetaminophen 5 mg-325 1 tab PO Q8H PRN pain #7 tabs 12/12/23 12/12/23 mg tablet (Percocet) pantoprazole 40 mg tablet,delayed 40 mg PO BID 12/12/23 12/12/23 release Previous Rx's Medication Instructions Recorded docusate sodium 100 mg capsule 100 mg PO DAILY #30 caps 12/08/23 (Colace) ibuprofen 800 mg tablet 800 mg PO Q8H PRN #60 tabs 12/08/23 oxycodone-acetaminophen 5 mg-325 1 tab PO Q8H PRN pain #7 tabs 12/12/23 mg tablet (Percocet) Allergies Allergy/AdvReac Type Severity Reaction Status Date / Time fluoxetine HCl [From Prozac] Allergy Intermediate Hives Verified 12/12/23 19:43 General Stated Complaint: Abd Prob ISIDRO: 3 Review of Systems All systems reviewed & are unremarkable except as noted in HPI and below Exam Narrative Exam Narrative: GENERAL APPEARANCE: Well-nourished, non-toxic, awake and alert, atraumatic, no acute distress. SKIN: Warm, pink, dry, intact, without rashes/lesions/ulcerations. HEAD: Normocephalic, atraumatic, normal hair distribution for gender/age. EYES: Pupils PERRLA, EOMs intact without nystagmus, normal conjunctiva, no exudates on lids/lashes. ENT: Nares patent, no circumoral cyanosis, no facial swelling NECK: Supple, trachea midline, painless cervical ROM. LUNGS/CHEST: Lungs CTA bilaterally- no rhonchi/rales/wheezes diffusely, non- labored respirations, normal A/P diameter, symmetrical expansion, no chest wall deformity HEART (CV/PV): Regular rate and rhythm without murmur, no peripheral edema, no JVD. ABDOMEN: Soft, non-distended, no guarding, suprapubic tenderness, epigastric tenderness, RLQ & LLQ tenderness, no erythema at suture sites, no purulent drainage, no fluctuant swelling. MSK: Normal ROM, no swelling/deformity to bilateral UEs or LEs, moving all extremities without weakness, no cyanosis, spine midline without tenderness, normal curvature. NEURO: Mental Status AAOx4 - alert to person, place, time, events No facial droop, no forehead involvement. Motor: No focal weakness - strength 5/5 in bilateral UEs and LEs, proximal and distal, symmetric. Sensory: sensation intact to light touch globally. Gait normal: patient ambulated without ataxia into ED room. PSYCH: euthymic, cooperative, pleasant, appropriate speech Course Vital Signs Vital signs: Vital Signs Temperature 37.1 C 12/12/23 19:25 Pulse 101 H 12/12/23 19:25 Respiratory Rate 18 12/12/23 19:25 Blood Pressure 114/78 12/12/23 19:25 Pulse Oximetry 96 12/12/23 19:25 Temperature 37.1 C 12/12/23 19:25 Temperature Source Tympanic 12/12/23 19:25 Pulse 101 H 12/12/23 19:25 Respiratory Rate 18 12/12/23 19:25 Blood Pressure 114/78 12/12/23 19:25 Blood Pressure Position Sitting 12/12/23 19:25 Pulse Oximetry 96 12/12/23 19:25 Oxygen Delivery Method Room Air 12/12/23 19:25 Oxygen Flow Rate 0 12/12/23 19:25 End Tidal Co2 4 12/12/23 19:25 Pain Level 3 12/12/23 19:25 Comment bilateral lower quad pain 12/12/23 19:25 Medical Decision Making This dictation utilizes [id number] dictation software and may contain unedited grammatical errors. 48 y/o F presents to ED today with a chief complaint of possible postoperative fever, infection, status post 5 days after lap hysterectomy here, endorses diffuse abdominal pain, no episodes of syncope, no developing cough, no shortness of breath. Patient spoke with on-call Dr. Gomez from [facility] who recommended ED evaluation with CT abdomen pelvis with contrast, possible abscess versus hematoma. Patients' medical history: Uterine fibroids, irregular bleed ing, sciatica, GERD, obesity, history of gastric bypass, history of tubal ligation. Family and social history: noncontributory. Pertinent exam findings / vital signs include diffuse exquisite abdominal tenderness, mild tachycardia, afebrile on arrival, lungs CTA. Differential / pathologies of concern include abscess, hematoma, infection, post-op fever, less likely PNA. Diagnostic studies of: -CBC, CMP, Lactate, Lipase, Procalcitonin, UA, Blood Cx's, CT ABD/Pelvis w Contrast. -CBC shows mild leukocytosis at 12 -Lactate 1.7, procalcitonin negative -ESR 31, CRP 11 -No major electrolyte abnormalities -Urine has moderate blood and small leuk esterase with 5-10 WBCs, will hold for culture -CT shows possible 6.5 cm abscess in the pelvis of fluid collection with loculations and gas, fistula with the colon cannot be excluded, I discussed this with [facility] [facility] Dr. Gomez who will admit the patient. Interventions of: -IV Tylenol, IV Fluids, IV Toradol - question NSAID use post-operatively with history of gastric bypass, will avoid further doses until consulting with OBGYN - patient has been taking 800mg ibuprofens at-home. ED Course/Assessment/Plan: 48-year-old female presents 5 days after laparoscopic hysterectomy, having fever and pain in the pelvis, [facility] [facility] encouraged her to come in for likely hematoma versus abscess, CT scan shows of loculated fluid collection with gas, there is some Surgicel in there from the procedure, OB will admit the patient to [facility] where there is bed capacity, I gladly started Zosyn and Flagyl. Patient was admitted at [address] Gomez who presented to ED. Disposition of Postoperative Fever, Postoperative Abscess of Pelvis in Female. Patient verbalized understanding of the plan and return to ED criteria and engaged in shared decision making. Medical Records Medical records reviewed: Yes I reviewed the patient's medical records. Imaging Data Radiologic Study: Attestation: I personally reviewed and interpreted this imaging study as follows: Imaging: X-Ray and CT Scan Radiologist's impression: Exam: CT Abdomen And Pelvis With Contrast Exam date and time: 12/12/2023 9:03 PM Age: 48 years old Clinical indication: Abdominal pain; Generalized; Prior surgery; Surgery date: 3-7 days post-operative; Surgery type: Hysterectomy on 12/07/23; Patient HX: Abd pain and post op fever TECHNIQUE: Imaging protocol: Computed tomography of the abdomen and pelvis with contrast. Radiation optimization: All CT scans at this facility use at least one of these dose optimization techniques: automated exposure control; mA and/or kV adjustment per patient size (includes targeted exams where dose is matched to clinical indication); or iterative reconstruction. Contrast material: OMNIPAQUE 350; Contrast volume: 100 ml; Contrast route: INTRAVENOUS (IV); COMPARISON: US PELVIS TRANSVAGINAL 03/28/2023 8:13 AM FINDINGS: Liver: Normal. No mass. Gallbladder and bile ducts: Normal. No calcified stones. No ductal dilation. Pancreas: Normal. No ductal dilation. Spleen: Normal. No splenomegaly. Adrenal glands: Normal. No mass. Kidneys and ureters: Normal. No hydronephrosis. Stomach and bowel: Mild fatty stranding of the sigmoid colon. No evidence of bowel obstruction. Appendix: No evidence of appendicitis. Intraperitoneal space: Unremarkable. No free air. No significant fluid collection. Vasculature: Unremarkable. No abdominal aortic aneurysm. Lymph nodes: Unremarkable. No enlarged lymph nodes. Urinary bladder: Mild posterior bladder wall thickening. Otherwise unremarkable. Reproductive: 6.5 cm loculated fluid collection containing a small amount of gas between the bladder and rectum, compatible with postoperative abscess given history of recent hysterectomy. Mottled distribution of the gas within the fluid collection has an appearance similar to stool, and connection to adjacent colon can not be excluded. Ovaries appear unremarkable. Moderate fatty stranding noted about the pelvic organs. Bones/joints: Severe degenerative disc changes of the lumbosacral junction and in the lower thoracic spine. Osseous alignment is normal. No vertebral body compression or acute fracture. Soft tissues: Unremarkable. IMPRESSION: 6.5 cm postoperative abscess in the pelvis. Mottled distribution of gas within the fluid collection has an appearance similar to stool and small connection to adjacent sigmoid colon can not be excluded. Adjacent wall thickening of the sigmoid colon and posterior wall of the urinary bladder compatible with secondary involvement of the structures by pelvic infection. THIS REPORT CONTAINS FINDINGS THAT MAY BE CRITICAL TO PATIENT CARE. The findings were verbally communicated via telephone conference with Myke Bliss at 9:30 PM EST on 12/12/2023. The findings were acknowledged and understood. Dictated and Authenticated by: Gabriel Preciado MD. Ordering:NED Stringer MD Lab Data Lab results reviewed: Yes I reviewed the patient's lab results. Labs: 12/12/23 19:59 Urine - Reflex from Ua Urine Culture - Pending 12/12/23 20:13 Blood Blood Culture - Pending 12/12/23 20:00 Blood Blood Culture - Pending Laboratory Tests Range/Units 12/12/23 12/12/23 12/12/23 19:39 19:59 20:00 WBC (4.4-10.8) 10^3/uL 12.10 H RBC (3.93-5.22) 10^6/uL 3.96 Hgb (11.2-15.7) g/dL 12.4 Hct (36.0-46.0) % 36.2 MCV (80-95) fL 91 MCH (27.0-33.0) pg 31.3 MCHC (32.0-36.0) % 34.3 RDW (11.7-14.6) % 13.5 Plt Count (130-400) 10^3/uL 248 MPV (8.0-11.0) fL 9.7 Immature Gran % 0.4 Neutrophils % 83.5 Lymphocytes % 9.8 Monocytes % 5.4 Eosinophils % 0.6 Basophils % 0.3 Nucleated RBC % (0.0-0.3) % 0.0 Absolute Neutrophils (1.2-6.7) 10^3/uL 10.10 H Absolute Lymphocytes (1.2-3.4) 10^3/uL 1.19 L Absolute Monocytes (0.1-0.8) 10^3/uL 0.65 Absolute Eosinophils (0.0-0.7) 10^3/uL 0.07 Absolute Basophils (0.0-0.2) 10^3/uL 0.04 ESR (0-20) mm/hr 31 H VBG Lactate (0.6-1.4) mmol/L 1.7 H Sodium (136-145) mmol/L 137 Potassium (3.5-5.1) mmol/L 3.9 Chloride (98-107) mmol/L 103 Carbon Dioxide (21.0-32.0) mmol/L 27.2 Anion Gap (3-11) mmol/L 6.8 BUN (7-18) mg/dL 7 Creatinine (0.55-1.02) mg/dL 0.9 Est GFR (CKD-EPI 2020) (mL/min/1.73m2) 78.86 Glucose (74-106) mg/dL 108 H Calcium (8.5-10.1) mg/dL 8.4 L Magnesium (1.8-2.4) mg/dL 2.0 Total Bilirubin (0.2-1.0) mg/dL 0.7 AST (15-37) U/L 13 L ALT (14-59) U/L 21 Alkaline Phosphatase (46-116) U/L 67 Troponin I Cancelled C-Reactive Protein (<or=0.5) mg/dL 11.31 H Total Protein (6.4-8.2) g/dL 6.8 Albumin (3.4-5.0) g/dL 2.9 L Lipase (16-77) U/L 16 Procalcitonin ng/mL < 0.1 Urine Color (Yellow) Yellow Urine Clarity (Clear) Clear Urine pH (5-8) 7.0 Ur Specific [place] (1.005-1.025) 1.010 Urine Protein (Neg-Trace) mg/dL Negative Urine Ketones (Negative) mg/dL Negative Urine Blood (Negative) Moderate H Urine Nitrite (Negative) Negative Urine Bilirubin (Negative) Negative Urine Urobilinogen (Up to 0.2) mg/dL 0.2 Ur Leukocyte Esterase (Negative) Small H Urine RBC (0-2) HPF 3-5 H Urine WBC (0-5) HPF 5-10 Ur Epithelial Cells (Negative) HPF Few Urine Crystals (Negative) HPF Negative Urine Bacteria (Negative) HPF Few Urine Casts (Negative) LPF Negative Urine Mucus (Negative) Negative Ur Culture Indicated? Yes Urine Glucose (Negative) mg/dL Negative Quality:SDOH Health Related Social Needs: No Data to Display PFSH All Active Problems (Updated 12/12/23 @ 21:47 by TRENT Faulkner) Postoperative fever (Acute) Postoperative abscess of pelvis in female (Acute) Status post laparoscopic assisted vaginal hysterectomy (LAVH) (Acute) LAVH with bilateral salpingectomy 12/07/2023. Secondary to symptomatic uterine fibroids, and abnormal uterine bleeding. Mast cell activation, unspecified (Acute) Seen by [facility] in [place]. History of Urticaria and anaphylaxis. 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 and anaphylaxis Hx of mammogram Other symptoms involving skin and integumentary tissues Sciatica Psychogenic headache Psoriasis Hypothyroid GERD (gastroesophageal reflux disease) Disorder of hyperalimentation Excessive daytime sleepiness Obesity with body mass index (BMI) of 30.0 to 39.9 Depressive disorder Witnessed apneic spells Morbid obesity with BMI of 40.0-44.9, adult Snoring History of sleeve gastrectomy Hyperlipidemia, unspecified Diarrhea Claustrophobia Anxiety state Migraine without aura Urticaria Other specified hypothyroidism Obstructive sleep apnea Non-restorative sleep Surgical History (Updated 12/09/23 @ 00:04 by JANINE SIMPSON) History of tubal ligation Hx of gastric bypass Family History Mother Essential hypertension Father Depression Heart disease Myocardial infarction 40's Brother Hypertension Grandmother , [place] at age 80. Myocardial infarction in her 80's from an [place] Breast cancer Other Obesity Substance abuse Social History Smoking/Tobacco Use Status: Never Smoking risk assessment performed?: Yes Alcohol Intake: never Drug use: Never Substance use type: does not use Housing: house Do you feel safe at home: Yes Do you feel safe in your relationship?: Yes History History 5 Para 3 Hx # Term Pregnancies 3 Multiple births Hx # Pregnancies Ectopic pregnancies AB induced Hx Number of Living Children 3 AB spontaneous
[2023-12-12] MEDS: Ketorolac 15 MG/ML VIAL IVP (20:04)
[2023-12-12] MEDS: ACETAMINOPHEN 1,000 MG/100 ML BTL 400 MG IVPB (20:04)
[2023-12-12] MEDS: Normal Saline 1,000 ML 1000 ML IV (20:04)
[2023-12-12 20:15] LABS: Lactate 1.7 mmol/L (0.6-1.4)
[2023-12-12 20:16] LABS: Abs Immature Grans 0.05 10^3/uL (0.0-0.06); Absolute Basophil Count 0.04 10^3/uL (0.0-0.2); Absolute Eosinophil Count 0.07 10^3/uL (0.0-0.7); Absolute Monocyte Count 0.65 10^3/uL (0.1-0.8); Basophils % 0.3; Eosinophils % 0.6; HCT 36.2 % (36.0-46.0); HGB 12.4 g/dL (11.2-15.7); Immature Grans % 0.4; Lymphocytes % 9.8; MCH 31.3 pg (27.0-33.0); MCHC 34.3 % (32.0-36.0); MCV 91 fL (80-95); MPV 9.7 fL (8.0-11.0); Monocytes % 5.4; Neutrophils % 83.5; Platelet Count 248 10^3/uL (130-400); RBC 3.96 10^6/uL (3.93-5.22); RDW 13.5 % (11.7-14.6); RDW-SD 45.8 fL
[2023-12-12 20:18] LABS: Absolute Lymphocyte Count 1.19 10^3/uL (1.2-3.4); ESR 31 mm/hr (0-20)
[2023-12-12 20:22] LABS: Bilirubin Negative (Negative); Blood Moderate (Negative); Clarity Clear (Clear); Glucose Negative (Negative); Ketones Negative (Negative); Leukocyte Esterase Small (Negative); Nitrite Negative (Negative); Urobilinogen 0.2 mg/dL (Up to 0.2)
[2023-12-12 20:32] LABS: Bacteria Few HPF (Negative); C & S Indicated? Yes; Casts Negative LPF (Negative); Crystals Negative HPF (Negative); Epithelial Cells Few HPF (Negative); Mucus Negative (Negative)
[2023-12-12 20:34] LABS: ALT 21 U/L (14-59); AST 13 U/L (15-37); Albumin 2.9 g/dL (3.4-5.0); Alkaline Phosphatase 67 U/L (46-116); Anion Gap 6.8 mmol/L (3-11); BUN 7 mg/dL (7-18); Bilirubin, Total 0.7 mg/dL (0.2-1.0); C-Reactive Protein 11.31 mg/dL (<or=0.5); CO2 27.2 mmol/L (21.0-32.0); CREATININE 0.9 mg/dL (0.55-1.02); Calcium 8.4 mg/dL (8.5-10.1); Chloride 103 mmol/L (98-107); Estimated GFR 78.86 (mL/min/1.73m2); Glucose 108 mg/dL (74-106); Lipase 16 U/L (16-77); Potassium 3.9 mmol/L (3.5-5.1); Sodium 137 mmol/L (136-145); Total Protein 6.8 g/dL (6.4-8.2)
[2023-12-12 20:48] LABS: Procalcitonin < 0.1 ng/mL
[2023-12-12] MEDS: Normal Saline Flush 10 ML SYR IVP (21:01)
[2023-12-12] MEDS: Omnipaque 350 MG/ML 100 ML BTL IJ (21:02)
[2023-12-12] MEDS: Normal Saline - Diluent 50 ML VIAL IJ (21:03)
[2023-12-12] MEDS: PIPERACILLIN/TAZO 4.5 GM in Normal Saline 100 ML IVPB (21:50)
--- NOTE | 2023-12-12 22:02 | DI.VRAD_ITS ---
PROCEDURE INFORMATION: Exam: CT Abdomen And Pelvis With Contrast Exam date and time: 12/12/2023 9:03 PM Age: 48 years old Clinical indication: Abdominal pain; Generalized; Prior surgery; Surgery date: 3-7 days post-operative; Surgery type: Hysterectomy on 12/07/23; Patient HX: Abd pain and post op fever TECHNIQUE: Imaging protocol: Computed tomography of the abdomen and pelvis with contrast. Radiation optimization: All CT scans at this facility use at least one of these dose optimization techniques: automated exposure control; mA and/or kV adjustment per patient size (includes targeted exams where dose is matched to clinical indication); or iterative reconstruction. Contrast material: OMNIPAQUE 350; Contrast volume: 100 ml; Contrast route: INTRAVENOUS (IV); COMPARISON: US PELVIS TRANSVAGINAL 03/28/2023 8:13 AM FINDINGS: Liver: Normal. No mass. Gallbladder and bile ducts: Normal. No calcified stones. No ductal dilation. Pancreas: Normal. No ductal dilation. Spleen: Normal. No splenomegaly. Adrenal glands: Normal. No mass. Kidneys and ureters: Normal. No hydronephrosis. Stomach and bowel: Mild fatty stranding of the sigmoid colon. No evidence of bowel obstruction. Appendix: No evidence of appendicitis. Intraperitoneal space: Unremarkable. No free air. No significant fluid collection. Vasculature: Unremarkable. No abdominal aortic aneurysm. Lymph nodes: Unremarkable. No enlarged lymph nodes. Urinary bladder: Mild posterior bladder wall thickening. Otherwise unremarkable. Reproductive: 6.5 cm loculated fluid collection containing a small amount of gas between the bladder and rectum, compatible with postoperative abscess given history of recent hysterectomy. Mottled distribution of the gas within the fluid collection has an appearance similar to stool, and connection to adjacent colon can not be excluded. Ovaries appear unremarkable. Moderate fatty stranding noted about the pelvic organs. Bones/joints: Severe degenerative disc changes of the lumbosacral junction and in the lower thoracic spine. Osseous alignment is normal. No vertebral body compression or acute fracture. Soft tissues: Unremarkable. IMPRESSION: 6.5 cm postoperative abscess in the pelvis. Mottled distribution of gas within the fluid collection has an appearance similar to stool and small connection to adjacent sigmoid colon can not be excluded. Adjacent wall thickening of the sigmoid colon and posterior wall of the urinary bladder compatible with secondary involvement of the structures by pelvic infection. THIS REPORT CONTAINS FINDINGS THAT MAY BE CRITICAL TO PATIENT CARE. The findings were verbally communicated via telephone conference with Myke Bliss at 9:30 PM EST on 12/12/2023. The findings were acknowledged and understood. Dictated and Authenticated by: Gabriel Preciado MD. Ordering:NED Stringer MD
--- NOTE | 2023-12-12 22:29 | W.PM.HP.N ---
Date of service: 12/12/23 Time of Service: 22:29 Assessment and Plan Assessment and plan (1) Status post laparoscopic assisted vaginal hysterectomy (LAVH): Status: Acute Assessment and plan: 5 days status post laparoscopically assisted vaginal hysterectomy with bilateral salpingectomy. (2) Postoperative fever: Status: Acute Assessment and plan: Postoperative fever with mildly elevated white blood cell count, and pelvic fluid collection consistent with pelvic hematoma with Surgicel versus abscess. Will treat as an abscess currently. IV antibiotics over the course of the next 24 hours with careful monitoring of vital signs, and urinary output. Serial CBC. If clinically improved, may continue to walk and transition to oral antibiotics. If no improvement clinically, may warrant drainage of her fluid collection either transvaginally, or with CT-guided drainage. All of her questions were answered to the best of my ability today. (3) Postoperative abscess of pelvis in female: Status: Acute (4) Mast cell activation, unspecified: Status: Acute Assessment and plan: Stable History of Present Illness History of Present Illness Chief Complaint: Postoperative fever Consults Consult date: 12/12/23 Requesting physician: Myke Bliss Narrative: Patient is a 48-year-old female who is postoperative day #5 status post laparoscopically assisted vaginal hysterectomy with bilateral salpingectomy. At the time of her procedure, she had approximately 200 cc blood loss, however had significant dissection at the vaginal cuff and due to a small amount of ooze from the cuff had a piece of Surgicel placed intraoperatively. surgery was otherwise uncomplicated. She did have a cystoscopy to evaluate the bladder integrity, along with ureteric function, and intraoperatively digital rectal exam in order to confirm surgical site is far away from the rectal mucosa, ensuring integrity. She had an uncomplicated immediate postoperative course and was discharged home postoperative day #1, ambulating, tolerating a regular diet, with stable vital signs. She called earlier today with a small amount of back discomfort, and slight increase in pelvic pressure. At that time, she was eating well, voiding without difficulty, afebrile, and seeming very appropriate. She was instructed to monitor for further symptomatology which would include bleeding, discharge, fever. She called me later this evening with an elevated temperature tympanic at 101.4. She also said that she had a gush of some fluid issue and bloody discharge from her vagina at that time. In light of these new changes, my recommendation was for her to present to the emergency department for further evaluation. On her evaluation, she was found to be afebrile, however mildly elevated white blood cell count at 12, and CT that showed a 6 cm fluid collection in the cul-de-sac which was somewhat loculated with some gas indicative of abscess. In light of this, the patient will be admitted to the hospital for IV antibiotic therapy. The plan will be IV antibiotics for a minimum of 24 hours with careful monitoring of blood blood count, and vital signs along with urine output. If she continues to improve, defervesce and stabilize her white blood cell count, we will watch her abscess clinically. If there is no improvement or worsening her condition, drainage of the abscess may be warranted either via opening of the vaginal cuff versus CT guidance. PFSH All Active Problems (Updated 12/12/23 @ 21:47 by TRENT Faulkner) Postoperative fever (Acute) Postoperative abscess of pelvis in female (Acute) Status post laparoscopic assisted vaginal hysterectomy (LAVH) (Acute) LAVH with bilateral salpingectomy 12/07/2023. Secondary to symptomatic uterine fibroids, and abnormal uterine bleeding. Mast cell activation, unspecified (Acute) Seen by [facility] Allergy in [place]. History of Urticaria and anaphylaxis. 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 and anaphylaxis Hx of mammogram Other symptoms involving skin and integumentary tissues Sciatica Psychogenic headache Psoriasis Hypothyroid GERD (gastroesophageal reflux disease) Disorder of hyperalimentation Excessive daytime sleepiness Obesity with body mass index (BMI) of 30.0 to 39.9 Depressive disorder Witnessed apneic spells Morbid obesity with BMI of 40.0-44.9, adult Snoring History of sleeve gastrectomy Hyperlipidemia, unspecified Diarrhea Claustrophobia Anxiety state Migraine without aura Urticaria Other specified hypothyroidism Obstructive sleep apnea Non-restorative sleep Surgical History (Updated 12/09/23 @ 00:04 by JANINE SIMPSON) History of tubal ligation Hx of gastric bypass Family History Mother Essential hypertension Father Depression Heart disease Myocardial infarction 40's Brother Hypertension Grandmother , [place] at age 80. Myocardial infarction in her 80's from an [place] Breast cancer Other Obesity Substance abuse Social History Smoking/Tobacco Use Status: Never Smoking risk assessment performed?: Yes Alcohol Intake: never Drug use: Never Substance use type: does not use Housing: house Do you feel safe at home: Yes Do you feel safe in your relationship?: Yes History History 5 Para 3 Hx # Term Pregnancies 3 Multiple births Hx # Pregnancies Ectopic pregnancies AB induced Hx Number of Living Children 3 AB spontaneous Meds Allergies and Home Medications Allergies Allergy/AdvReac Type Severity Reaction Status Date / Time fluoxetine HCl [From Prozac] Allergy Intermediate Hives Verified 12/12/23 19:43 Home Medications Medication Instructions Recorded Confirmed Type bupropion HCl 150 mg 24 hr tablet, 150 mg PO DAILY 09/06/17 12/12/23 History extended release (Wellbutrin XL) cetirizine 5 mg-pseudoephedrine ER 1 ea PO BID 09/06/17 12/12/23 History 120 mg tablet,extended release,12hr (Zyrtec-D) levothyroxine 150 mcg tablet 150 mcg PO DAILY 09/06/17 12/12/23 History (Synthroid) omeprazole 40 mg capsule,delayed 40 mg PO DAILY 09/06/17 12/12/23 History release cetirizine 10 mg capsule (Zyrtec) 10 mg PO BID 12/16/17 12/12/23 History cholecalciferol (vitamin D3) 50 2,000 unit PO DAILY 12/16/17 12/12/23 History mcg (2,000 unit) capsule (Vitamin D3) epinephrine 0.3 mg/0.3 mL 0.3 mg IM ONCE 12/16/17 12/12/23 History injection, auto-injector (EpiPen 2-Jignesh) multivitamin (Daily Multi-Vitamin 1 ea PO DAILY 12/16/17 12/12/23 History tablet) sumatriptan succinate 50 mg tablet 50 mg PO PRN 12/16/17 12/12/23 History (Imitrex) citalopram 40 mg tablet 40 mg PO DAILY 12/07/23 12/12/23 History docusate sodium 100 mg capsule 100 mg PO DAILY #30 caps 12/08/23 12/12/23 Rx (Colace) ibuprofen 800 mg tablet 800 mg PO Q8H PRN #60 tabs 12/08/23 12/12/23 Rx famotidine 20 mg tablet 20 mg PO BID 12/12/23 12/12/23 History oxycodone-acetaminophen 5 mg-325 1 tab PO Q8H PRN pain #7 tabs 12/12/23 12/12/23 Rx mg tablet (Percocet) pantoprazole 40 mg tablet,delayed 40 mg PO BID 12/12/23 12/12/23 History release Exam Const General: cooperative, healthy appearing, comfortable, no acute distress, well groomed, not anxious and ill appearing Orientation: alert, awake and oriented x3 HENMT Head: normal to inspection Eyes General: appearance normal, both eyes and all related structures Neck Neck: normal visual inspection, supple and no lymphadenopathy noted Resp Effort & Inspection: normal respiratory effort, no audible wheezes, no cough, not labored and no respiratory distress Auscultation: clear to auscultation bilaterally, no rales, no rhonchi and no wheezes Cardio Rate: regular rate Rhythm: regular rhythm Heart Sounds: S1 normal, S2 normal and no murmurs GI Inspection: normal to inspection, no edema, non-distended and incision (Dressed, minimal ecchymosis. No surrounding erythema.) Palpation: soft, not firm, no guarding and no masses Auscultation: normal bowel sounds Skin General skin exam: no rashes or lesions noted Extrem General: normal to inspection and no clubbing, cyanosis or edema Results Labs 12/12/23 20:00 12/12/23 20:00 Labs: Laboratory Results - last 24 hr 12/12/23 12/12/23 12/12/23 19:39 19:59 20:00 WBC 12.10 H RBC 3.96 Hgb 12.4 Hct 36.2 MCV 91 MCH 31.3 MCHC 34.3 RDW 13.5 Plt Count 248 MPV 9.7 Immature Gran % 0.4 Neutrophils % 83.5 Lymphocytes % 9.8 Monocytes % 5.4 Eosinophils % 0.6 Basophils % 0.3 Nucleated RBC % 0.0 Absolute Neutrophils 10.10 H Absolute Lymphocytes 1.19 L Absolute Monocytes 0.65 Absolute Eosinophils 0.07 Absolute Basophils 0.04 ESR 31 H VBG Lactate 1.7 H Sodium 137 Potassium 3.9 Chloride 103 Carbon Dioxide 27.2 Anion Gap 6.8 BUN 7 Creatinine 0.9 Est GFR (CKD-EPI 2020) 78.86 Glucose 108 H Calcium 8.4 L Magnesium 2.0 Total Bilirubin 0.7 AST 13 L ALT 21 Alkaline Phosphatase 67 Troponin I Cancelled C-Reactive Protein 11.31 H Total Protein 6.8 Albumin 2.9 L Lipase 16 Procalcitonin < 0.1 Urine Color Yellow Urine Clarity Clear Urine pH 7.0 Ur Specific [place] 1.010 Urine Protein Negative Urine Ketones Negative Urine Blood Moderate H Urine Nitrite Negative Urine Bilirubin Negative Urine Urobilinogen 0.2 Ur Leukocyte Esterase Small H Urine RBC 3-5 H Urine WBC 5-10 Ur Epithelial Cells Few Urine Crystals Negative Urine Bacteria Few Urine Casts Negative Urine Mucus Negative Ur Culture Indicated? Yes Urine Glucose Negative Last Vital Signs Temp 98.7 F 12/12/23 19:34 Pulse 101 H 12/12/23 19:34 Resp 18 12/12/23 19:34 BP 114/78 12/12/23 19:34 Pulse Ox 96 12/12/23 19:34 Time Spent Time spent with Patient: 55-74 minutes Time was spent: preparing to see the patient(eg.review tests), obtaining and/or reviewing separately otained hiistory, ordering medications,tests, procedures, referring, communicating with other health care associate, indepentently interpreting results, counseling the patient and care coordination
[2023-12-12 22:34] VITALS: BP 115/52; PULSE 75; RESP 16; TEMP 36.9; O2SAT 97
[2023-12-12] MEDS: metroNIDAZOLE 500 MG/100 ML BAG 100 MG IVPB (22:38)
[2023-12-12] MEDS: Normal Saline 1,000 ML 125 ML IV (23:00)
[2023-12-13] VITALS (7 sets, daily range): BP systolic 101–118; BP diastolic 48–69; PULSE 59–69; RESP 16–18; TEMP 36.5–37.2; O2SAT 98–99
[2023-12-13] MEDS: oxyCODONE 5 mg/Acetaminophen 325 mg TAB 1 TAB PO (03:19)
[2023-12-13] MEDS: metroNIDAZOLE 500 MG/100 ML BAG 100 MG IVPB ×3 (05:42→21:37)
--- NOTE | 2023-12-13 05:49 | W.PM.PROGNOT ---
Date of Service Date of service: 12/13/23 Time of Service: 05:49 Assessment and Plan Assessment and plan (1) Status post laparoscopic assisted vaginal hysterectomy (LAVH): Status: Acute Assessment and plan: Postoperative day #6 status post laparoscopically assisted vaginal hysterectomy with bilateral salpingectomy. course complicated by suspected pelvic hematoma versus abscess. She is receiving broad spectrum parenteral IV antibiotics. She will have serial CBCs. Will continue to monitor for clinical improvement. At this point, I do not feel that it is warranted for attempted drainage. If improvement clinically is limited, would consider transvaginal versus percutaneous drainage of her fluid collection. Care will be transitioned to Dr. Seay for the next 24 hours. She is aware and informed of the patient's status. (2) Postoperative abscess of pelvis in female: Status: Acute (3) Mast cell activation, unspecified: Status: Acute Subjective Subjective Interval history since last seen: Patient seen and examined this morning. Feels somewhat better. No fever over the night. Vital signs have been stable. She is now receiving her second dose of Zosyn and Flagyl. CBC is pending for this morning. Care plan discussed at length with both the patient and her . Exam Const General: cooperative, healthy appearing, comfortable, no acute distress, well developed and well hydrated HENMA Head: normal to inspection Eyes General: appearance normal, both eyes and all related structures Resp Effort & Inspection: normal respiratory effort, no audible wheezes and no cough Cardio Rate: regular rate Rhythm: regular rhythm GI Inspection: normal to inspection, non-distended and incision (dressed) Skin General skin exam: no rashes or lesions noted Neuro General: patient alert, patient awake and patient oriented x3 Objective Last Vital Signs Temp 98.6 F 12/13/23 03:30 Pulse 65 12/13/23 03:30 Resp 18 12/13/23 03:30 BP 111/52 L 12/13/23 03:30 Pulse Ox 97 12/12/23 22:34 Laboratory Results - last 24 hr 12/12/23 12/12/23 12/12/23 19:39 19:59 20:00 WBC 12.10 H RBC 3.96 Hgb 12.4 Hct 36.2 MCV 91 MCH 31.3 MCHC 34.3 RDW 13.5 Plt Count 248 MPV 9.7 Immature Gran % 0.4 Neutrophils % 83.5 Lymphocytes % 9.8 Monocytes % 5.4 Eosinophils % 0.6 Basophils % 0.3 Nucleated RBC % 0.0 Absolute Neutrophils 10.10 H Absolute Lymphocytes 1.19 L Absolute Monocytes 0.65 Absolute Eosinophils 0.07 Absolute Basophils 0.04 ESR 31 H VBG Lactate 1.7 H Sodium 137 Potassium 3.9 Chloride 103 Carbon Dioxide 27.2 Anion Gap 6.8 BUN 7 Creatinine 0.9 Est GFR (CKD-EPI 2020) 78.86 Glucose 108 H Calcium 8.4 L Magnesium 2.0 Total Bilirubin 0.7 AST 13 L ALT 21 Alkaline Phosphatase 67 Troponin I Cancelled C-Reactive Protein 11.31 H Total Protein 6.8 Albumin 2.9 L Lipase 16 Procalcitonin < 0.1 Urine Color Yellow Urine Clarity Clear Urine pH 7.0 Ur Specific [place] 1.010 Urine Protein Negative Urine Ketones Negative Urine Blood Moderate H Urine Nitrite Negative Urine Bilirubin Negative Urine Urobilinogen 0.2 Ur Leukocyte Esterase Small H Urine RBC 3-5 H Urine WBC 5-10 Ur Epithelial Cells Few Urine Crystals Negative Urine Bacteria Few Urine Casts Negative Urine Mucus Negative Ur Culture Indicated? Yes Urine Glucose Negative Time Spent with Patient Time Spent with Patient: 25-34 minutes Time was spent: preparing to see the patient(eg.review tests), obtaining and/or reviewing separately otained hiistory, ordering medications,tests, procedures, referring, communicating with other health medical care evaluation specialist, indepentently interpreting results, counseling the patient and care coordination
[2023-12-13] MEDS: Levothyroxine 150 MCG TAB PO (06:36)
[2023-12-13] MEDS: PIPERACILLIN/TAZO 4.5 GM in Normal Saline 100 ML IVPB ×3 (06:36→22:31)
[2023-12-13 06:46] LABS: HCT 31.5 % (36.0-46.0); HGB 10.4 g/dL (11.2-15.7); MCV 94 fL (80-95); MPV 10.1 fL (8.0-11.0); Platelet Count 212 10^3/uL (130-400); RBC 3.35 10^6/uL (3.93-5.22); RDW-SD 47.8 fL; WBC 8.53 10^3/uL (4.4-10.8)
[2023-12-13] MEDS: Famotidine 20 MG TAB PO ×2 (07:44→16:55)
[2023-12-13] MEDS: Pantoprazole 40 MG TABCR PO ×2 (07:44→16:55)
[2023-12-13] MEDS: Normal Saline 1,000 ML 125 ML IV ×2 (07:51→16:54)
[2023-12-13] MEDS: Cetirizine 10 MG TAB PO (08:41)
[2023-12-13] MEDS: Citalopram 20 MG TAB 40 MG PO (08:41)
[2023-12-13] MEDS: buPROPion-XL 150 MG TABCR PO (08:41)
[2023-12-13] MEDS: Docusate Sodium 100 MG CAP PO (08:42)
[2023-12-13] MEDS: Ibuprofen 600 MG TAB PO ×2 (10:19→16:54)
[2023-12-13] MEDS: Acetaminophen 325 MG TAB 650 MG PO ×2 (10:20→16:55)
--- NOTE | 2023-12-13 19:42 | W.PM.PROGNOT ---
Date of Service Date of service: 12/13/23 Time of Service: 19:42 Assessment and Plan Assessment and plan (1) Status post laparoscopic assisted vaginal hysterectomy (LAVH): Status: Acute Assessment and plan: Postop day #6 status post laparoscopic assisted vaginal hysterectomy with bilateral salpingectomy, with a postoperative course complicated by pelvic abscess versus hematoma. Currently stable with stable vital signs and afebrile on IV antibiotics, Zosyn and Flagyl. Will complete a 24-hour course of parenteral antibiotics and convert to orals if stable in the morning. Await morning CBC. At this point, I would not suspect that she will need surgical intervention. We would repeat imaging in approximately 1 week to evaluate the size of her hematoma (2) Postoperative abscess of pelvis in female: Status: Acute (3) Mast cell activation, unspecified: Status: Acute Subjective Subjective Interval history since last seen: Patient seen and examined this evening. Doing well. Far less pain. Vital signs are stable. White count has normalized. She has had a drop in her hemoglobin, which seems delusional. She has adequate urine output. Her appetite is appropriate. She does note some dark brown to red vaginal bleeding which would be consistent with here hematoma versus abscess. The plan for today will be complete IV antibiotics, and if afebrile after 6 AM dose will convert to oral antibiotics and monitor through the day. CBC in the morning. All questions answered. Objective Last Vital Signs Temp 98.8 F 12/13/23 16:14 Pulse 67 12/13/23 16:14 Resp 17 12/13/23 16:14 BP 115/55 L 12/13/23 16:14 Pulse Ox 98 12/13/23 16:14 Laboratory Results - last 24 hr 12/12/23 12/12/23 12/12/23 19:39 19:59 20:00 WBC 12.10 H RBC 3.96 Hgb 12.4 Hct 36.2 MCV 91 MCH 31.3 MCHC 34.3 RDW 13.5 Plt Count 248 MPV 9.7 Immature Gran % 0.4 Neutrophils % 83.5 Lymphocytes % 9.8 Monocytes % 5.4 Eosinophils % 0.6 Basophils % 0.3 Nucleated RBC % 0.0 Absolute Neutrophils 10.10 H Absolute Lymphocytes 1.19 L Absolute Monocytes 0.65 Absolute Eosinophils 0.07 Absolute Basophils 0.04 ESR 31 H VBG Lactate 1.7 H Sodium 137 Potassium 3.9 Chloride 103 Carbon Dioxide 27.2 Anion Gap 6.8 BUN 7 Creatinine 0.9 Est GFR (CKD-EPI 2020) 78.86 Glucose 108 H Calcium 8.4 L Magnesium 2.0 Total Bilirubin 0.7 AST 13 L ALT 21 Alkaline Phosphatase 67 Troponin I Cancelled C-Reactive Protein 11.31 H Total Protein 6.8 Albumin 2.9 L Lipase 16 Procalcitonin < 0.1 Urine Color Yellow Urine Clarity Clear Urine pH 7.0 Ur Specific [place] 1.010 Urine Protein Negative Urine Ketones Negative Urine Blood Moderate H Urine Nitrite Negative Urine Bilirubin Negative Urine Urobilinogen 0.2 Ur Leukocyte Esterase Small H Urine RBC 3-5 H Urine WBC 5-10 Ur Epithelial Cells Few Urine Crystals Negative Urine Bacteria Few Urine Casts Negative Urine Mucus Negative Ur Culture Indicated? Yes Urine Glucose Negative 12/13/23 06:05 WBC 8.53 RBC 3.35 L Hgb 10.4 L D Hct 31.5 L MCV 94 MCH 31.0 MCHC 33.0 RDW 14.0 Plt Count 212 MPV 10.1 Immature Gran % Neutrophils % Lymphocytes % Monocytes % Eosinophils % Basophils % Nucleated RBC % Absolute Neutrophils Absolute Lymphocytes Absolute Monocytes Absolute Eosinophils Absolute Basophils ESR VBG Lactate Sodium Potassium Chloride Carbon Dioxide Anion Gap BUN Creatinine Est GFR (CKD-EPI 2020) Glucose Calcium Magnesium Total Bilirubin AST ALT Alkaline Phosphatase Troponin I C-Reactive Protein Total Protein Albumin Lipase Procalcitonin Urine Color Urine Clarity Urine pH Ur Specific [place] Urine Protein Urine Ketones Urine Blood Urine Nitrite Urine Bilirubin Urine Urobilinogen Ur Leukocyte Esterase Urine RBC Urine WBC Ur Epithelial Cells Urine Crystals Urine Bacteria Urine Casts Urine Mucus Ur Culture Indicated? Urine Glucose Time Spent with Patient Time Spent with Patient: 25-34 minutes Time was spent: preparing to see the patient(eg.review tests), obtaining and/or reviewing separately otained hiistory, ordering medications,tests, procedures, referring, communicating with other health transitional care liaison, indepentently interpreting results and counseling the patient
[2023-12-14] VITALS (11 sets, daily range): BP systolic 100–113; BP diastolic 40–66; PULSE 57–68; RESP 16–18; TEMP 36.4–37.1; O2SAT 96–98
[2023-12-14] MEDS: Ibuprofen 600 MG TAB PO ×2 (00:48→13:39)
[2023-12-14] MEDS: Acetaminophen 325 MG TAB 650 MG PO ×2 (00:48→13:39)
[2023-12-14] MEDS: metroNIDAZOLE 500 MG/100 ML BAG 100 MG IVPB (05:29)
[2023-12-14] MEDS: oxyCODONE 5 mg/Acetaminophen 325 mg TAB 1 TAB PO (05:43)
[2023-12-14] MEDS: PIPERACILLIN/TAZO 4.5 GM in Normal Saline 100 ML IVPB ×3 (06:15→20:07)
[2023-12-14] MEDS: Levothyroxine 150 MCG TAB PO (08:33)
[2023-12-14] MEDS: Famotidine 20 MG TAB PO ×2 (08:33→16:43)
[2023-12-14] MEDS: Citalopram 20 MG TAB 40 MG PO (08:33)
[2023-12-14] MEDS: Cetirizine 10 MG TAB PO ×2 (08:34→19:55)
[2023-12-14] MEDS: buPROPion-XL 150 MG TABCR PO (08:34)
[2023-12-14] MEDS: Docusate Sodium 100 MG CAP PO (08:34)
[2023-12-14] MEDS: Pantoprazole 40 MG TABCR PO ×2 (08:34→16:43)
[2023-12-14 08:37] LABS: Abs Immature Grans 0.03 10^3/uL (0.0-0.06); Absolute Basophil Count 0.03 10^3/uL (0.0-0.2); Absolute Eosinophil Count 0.15 10^3/uL (0.0-0.7); Absolute Lymphocyte Count 0.94 10^3/uL (1.2-3.4); Absolute Monocyte Count 0.29 10^3/uL (0.1-0.8); Absolute Neutrophil Count 4.53 10^3/uL (1.2-6.7); Basophils % 0.5; Eosinophils % 2.5; HCT 33.9 % (36.0-46.0); Immature Grans % 0.5; Lymphocytes % 15.7; MCH 30.6 pg (27.0-33.0); MCHC 32.4 % (32.0-36.0); MCV 94 fL (80-95); MPV 9.7 fL (8.0-11.0); Monocytes % 4.9; Neutrophils % 75.9; Platelet Count 229 10^3/uL (130-400); RBC 3.59 10^6/uL (3.93-5.22); RDW 13.9 % (11.7-14.6); RDW-SD 48.7 fL; WBC 5.97 10^3/uL (4.4-10.8)
--- NOTE | 2023-12-14 09:30 | PGE_ITS ---
Date of Service Date of service: 12/14/23 Time of Service: 09:30 Assessment and Plan Assessment and plan (1) Status post laparoscopic assisted vaginal hysterectomy (LAVH): Status: Acute (2) Postoperative abscess of pelvis in female: Status: Acute Assessment and plan: Patient is now 7 days post laparoscopically assisted vaginal hysterectomy with bilateral salpingectomy. Readmission for fever with pelvic fluid collection hematoma, versus abscess. She has been on Zosyn and Flagyl for greater than 24 hours. She is afebrile with a normal white blood cell count. Bowel sounds are appropriate, she is passing flatus, however clinically, she feels poorly today, with an increase in some nausea and discomfort. In light of this, she will be made n.p.o. She will continue to have IV hydration. Will reimage with a CT scan to assess size and configuration of the fluid collection. If no improvement, or worsening, greater expansion of her fluid collection, would consider CT-guided drainage versus surgical intervention. Subjective Subjective Interval history since last seen: Patient seen and examined this morning. Vital signs have been stable. Tmax is 99 greater than 24 hours ago. Laboratory studies are appropriate. White blood cell count has returned to the normal range. Hemoglobin stable at 11. Clinically, patient is having some increase in discomfort and some slight nausea this morning, no vomiting. She has been passing flatus, and had a bowel movement that was regular this morning. She does report a small amount of vaginal bleeding. She denies fevers or chills. Exam Const General: cooperative, healthy appearing, comfortable and no acute distress Eyes General: appearance normal, both eyes and all related structures Resp Effort & Inspection: normal respiratory effort, no audible wheezes and no cough Cardio Rate: regular rate Rhythm: regular rhythm GI Inspection: normal to inspection, non-distended and incision (Dressed) Palpation: soft, not firm, no guarding and tender (Mild diffuse tenderness) Auscultation: normal bowel sounds Extrem General: normal to inspection and no clubbing, cyanosis or edema Objective Last Vital Signs Temp 97.5 F L 12/14/23 07:20 Pulse 59 L 12/14/23 07:20 Resp 16 12/14/23 07:20 BP 108/54 L 12/14/23 07:20 Pulse Ox 96 12/14/23 07:20 Laboratory Results - last 24 hr 12/14/23 08:20 WBC 5.97 RBC 3.59 L Hgb 11.0 L Hct 33.9 L MCV 94 MCH 30.6 MCHC 32.4 RDW 13.9 Plt Count 229 MPV 9.7 Immature Gran % 0.5 Neutrophils % 75.9 Lymphocytes % 15.7 Monocytes % 4.9 Eosinophils % 2.5 Basophils % 0.5 Nucleated RBC % 0.0 Absolute Neutrophils 4.53 Absolute Lymphocytes 0.94 L Absolute Monocytes 0.29 Absolute Eosinophils 0.15 Absolute Basophils 0.03 Time Spent with Patient Time Spent with Patient: 35-49 minutes Time was spent: preparing to see the patient(eg.review tests), obtaining and/or reviewing separately otained hiistory, ordering medications,tests, procedures, referring, communicating with other health respiratory care technician, indepentently interpreting results and counseling the patient
[2023-12-14] MEDS: Omnipaque 350 MG/ML 50 ML BTL PO (09:52)
[2023-12-14] MEDS: Breeza Beverage 473 ML BTL PO (09:53)
--- NOTE | 2023-12-14 09:57 | W.PM.PROGNOT ---
Date of Service Date of service: 12/14/23 Time of Service: 09:57 Subjective Subjective Interval history since last seen: Spoke with general surgery for consultation. Recommendation is to reimage in approximately 24 hours, sooner if necessary. Clear liquid diet for now. Continue to monitor. Formal consultation is pending. Objective Last Vital Signs Temp 97.5 F L 12/14/23 07:20 Pulse 59 L 12/14/23 07:20 Resp 16 12/14/23 07:20 BP 108/54 L 12/14/23 07:20 Pulse Ox 96 12/14/23 07:20 Laboratory Results - last 24 hr 12/14/23 08:20 WBC 5.97 RBC 3.59 L Hgb 11.0 L Hct 33.9 L MCV 94 MCH 30.6 MCHC 32.4 RDW 13.9 Plt Count 229 MPV 9.7 Immature Gran % 0.5 Neutrophils % 75.9 Lymphocytes % 15.7 Monocytes % 4.9 Eosinophils % 2.5 Basophils % 0.5 Nucleated RBC % 0.0 Absolute Neutrophils 4.53 Absolute Lymphocytes 0.94 L Absolute Monocytes 0.29 Absolute Eosinophils 0.15 Absolute Basophils 0.03 Time Spent with Patient Time Spent with Patient: 25-34 minutes Time was spent: obtaining and/or reviewing separately otained hiistory and referring, communicating with other health behavioral health care manager
[2023-12-14] MEDS: Normal Saline 1,000 ML 70 ML IV (10:07)
--- NOTE | 2023-12-14 10:29 | SCONE_ITS ---
Date of service: 12/14/23 Time of Service: 11:00 Assessment and Plan Assessment and plan (1) Postoperative abscess of pelvis in female: Status: Acute Assessment and plan: 48 yo woman with a pelvic abscess one week after lap hysterectomy. She is not toxic, HD stable, has a benign abdominal exam and is having bowel function. The clinical time-frame/history of fever and discomfort starting on day 5 fits the picture of a pelvic abscess in etiology. I reviewed the CT scan myself. I do not see any obvious free air. Certainly the abscess is in the vicinity of the sigmoid colon, being right next to it, but other than being right next to each other I do not see anything radiographically to make me suspicious that the colon has been injured. The abscess looks amenable to drainage in my opinion. Certainly has possible that the abscess is the location of the Surgicel, but probably this is some amount of postop pelvic hematoma that has become infected would be my best guess and is now an abscess. I think the chance that this is a missed, inadvertent colon injury is extremely unlikely. The patient is not sick enough to suggest this as the etiology. In any event, the presence of the abscess explains her symptoms and the reality that she is not getting better after 48 hours of antibiotics makes it likely that she will need to have this drained. I recommend repeating a CT scan tomorrow which will have been 72 hours of IV antibiotics and if it is not noticeably improved and she remains the same clinically, then I defer to gynecology to decide on either a transvaginal drainage effort or percutaneous IR image?guided drain at [facility]. She can otherwise have a diet as tolerated. I recommend avoiding any narcotic analgesia and ensuring she is on DVT prophylaxis since pelvic abscess can cause iliofemoral vein blood clots. Surgery will follow along and see what the CT scan in the morning shows. History of Present Illness Narrative: 48-year-old woman had a laparoscopic transvaginal hysterectomy performed 1 week ago. According to her line maintainer, there was need for Surgicel because of some venous oozing in the pelvis. The patient endorses that initially she would did really well but on the fifth day after her surgery she developed some lower cramping abdominal discomfort and then later that evening had a very high fever. She came to the hospital and a CT scan was performed which showed a 6 cm pelvis abscess. She also had an elevated white count. She was placed on IV antibiotics and has improved a little bit but not completely which is the reason for the consultation today. At the bedside the patient says she still feels uncomfortable lower down and overall has a poor appetite and does not feel very well. She feels febrile but has not had a high fever while here in the hospital. She has been tolerating a diet but does not have much of an appetite but does endorse passing gas and having bowel function. She is not nauseated and has not vomited. She has urinated twice this morning and her nurse reports the urine is clear and not concentrated. PFSH All Active Problems (Updated 12/12/23 @ 21:47 by TRENT Faulkner) Postoperative fever (Acute) Postoperative abscess of pelvis in female (Acute) Status post laparoscopic assisted vaginal hysterectomy (LAVH) (Acute) LAVH with bilateral salpingectomy 12/07/2023. Secondary to symptomatic uterine fibroids, and abnormal uterine bleeding. Mast cell activation, unspecified (Acute) Seen by Linus Schofield Allergy in [place]. History of Urticaria and anaphylaxis. 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 and anaphylaxis Hx of mammogram Other symptoms involving skin and integumentary tissues Sciatica Psychogenic headache Psoriasis Hypothyroid GERD (gastroesophageal reflux disease) Disorder of hyperalimentation Excessive daytime sleepiness Obesity with body mass index (BMI) of 30.0 to 39.9 Depressive disorder Witnessed apneic spells Morbid obesity with BMI of 40.0-44.9, adult Snoring History of sleeve gastrectomy Hyperlipidemia, unspecified Diarrhea Claustrophobia Anxiety state Migraine without aura Urticaria Other specified hypothyroidism Obstructive sleep apnea Non-restorative sleep Surgical History (Updated 12/09/23 @ 00:04 by JANINE SIMPSON) History of tubal ligation Hx of gastric bypass Family History Mother Essential hypertension Father Depression Heart disease Myocardial infarction 40's Brother Hypertension Grandmother , [place] at age 80. Myocardial infarction in her 80's from an [place] Breast cancer Other Obesity Substance abuse Social History Smoking/Tobacco Use Status: Never Smoking risk assessment performed?: Yes Alcohol Intake: never Drug use: Never Substance use type: does not use Housing: house Do you feel safe at home: Yes Do you feel safe in your relationship?: Yes History History 2 5 Para 3 Hx # Term Pregnancies 3 Multiple births Hx # Pregnancies Ectopic pregnancies AB induced Hx Number of Living Children 3 AB spontaneous Exam Narrative Exam Narrative: General: Nontoxic, interactive, but appears mildly uncomfortable. Neuro: AxOx3 Psych: Appropriate mood and affect, good insight and understanding Chest: Non-labored breathing Heart: Regular Abdomen: Soft, grossly nontender, nondistended. Results Last Vital Signs Temp 97.7 F 12/14/23 09:30 Pulse 66 12/14/23 09:30 Resp 16 12/14/23 09:30 BP 104/50 L 12/14/23 09:30 Pulse Ox 97 12/14/23 09:30 Labs 12/14/23 08:20 12/12/23 20:00 Labs: Laboratory Results - last 24 hr 12/14/23 08:20 WBC 5.97 RBC 3.59 L Hgb 11.0 L Hct 33.9 L MCV 94 MCH 30.6 MCHC 32.4 RDW 13.9 Plt Count 229 MPV 9.7 Immature Gran % 0.5 Neutrophils % 75.9 Lymphocytes % 15.7 Monocytes % 4.9 Eosinophils % 2.5 Basophils % 0.5 Nucleated RBC % 0.0 Absolute Neutrophils 4.53 Absolute Lymphocytes 0.94 L Absolute Monocytes 0.29 Absolute Eosinophils 0.15 Absolute Basophils 0.03
[2023-12-14] MEDS: Heparin 5,000 UNITS/ML VIAL 5000 UNITS SC ×2 (16:44→23:54)
--- NOTE | 2023-12-14 17:11 | W.PM.PROGNOT ---
Date of Service Date of service: 12/14/23 Time of Service: 17:11 Assessment and Plan Assessment and plan (1) Status post laparoscopic assisted vaginal hysterectomy (LAVH): Status: Acute (2) Postoperative abscess of pelvis in female: Status: Acute Assessment and plan: Day [address] scan in the morning. N.p.o. in the morning. Other recommendations based on imaging. All questions answered Subjective Subjective Interval history since last seen: Patient seen and examined this evening. Overall doing well. Vital signs are stable. Urine output is adequate. Plan of care discussed at length with the patient and her . Appreciate general surgery's input. CT scan in the morning after being NPO. Further recommendations based on CT findings. Objective Last Vital Signs Temp 98.1 F 12/14/23 15:30 Pulse 59 L 12/14/23 15:30 Resp 16 12/14/23 15:30 BP 101/62 12/14/23 15:30 Pulse Ox 97 12/14/23 15:30 Laboratory Results - last 24 hr 12/14/23 08:20 WBC 5.97 RBC 3.59 L Hgb 11.0 L Hct 33.9 L MCV 94 MCH 30.6 MCHC 32.4 RDW 13.9 Plt Count 229 MPV 9.7 Immature Gran % 0.5 Neutrophils % 75.9 Lymphocytes % 15.7 Monocytes % 4.9 Eosinophils % 2.5 Basophils % 0.5 Nucleated RBC % 0.0 Absolute Neutrophils 4.53 Absolute Lymphocytes 0.94 L Absolute Monocytes 0.29 Absolute Eosinophils 0.15 Absolute Basophils 0.03 Time Spent with Patient Time Spent with Patient: 35-49 minutes Time was spent: obtaining and/or reviewing separately otained hiistory, referring, communicating with other health residential care officer, counseling the patient and care coordination
[2023-12-14] MEDS: ACETAMINOPHEN 1,000 MG/100 ML BTL 400 MG IVPB (19:40)
[2023-12-15] VITALS (11 sets, daily range): BP systolic 107–130; BP diastolic 49–77; PULSE 53–69; RESP 16–18; TEMP 36.5–37.1; O2SAT 99–100
[2023-12-15] MEDS: ACETAMINOPHEN 1,000 MG/100 ML BTL 400 MG IVPB ×2 (01:44→07:50)
[2023-12-15] MEDS: PIPERACILLIN/TAZO 4.5 GM in Normal Saline 100 ML IVPB ×4 (01:57→20:03)
[2023-12-15] MEDS: Pantoprazole 40 MG TABCR PO ×2 (07:28→16:02)
[2023-12-15] MEDS: Levothyroxine 150 MCG TAB PO (07:28)
[2023-12-15] MEDS: Famotidine 20 MG TAB PO ×2 (07:28→16:02)
--- NOTE | 2023-12-15 08:00 | DI.CT_ITS ---
Exam(s) CT ABDOMEN PELVIS W EXAM: CT ABDOMEN PELVIS W CLINICAL HISTORY: re-assess pelvic abscess - 72 hours of IV Abx. TECHNIQUE: Imaging Protocol: Axial computed tomography images with coronal and sagittal reformatted images were created and reviewed CONTRAST MATERIAL: Intravenous: Omnipaque 350 Contrast volume:100 ml Oral: no COMPARISON: CT CT ABDOMEN PELVIS W from 12/12/2023 FINDINGS: ABDOMEN and PELVIS: Lung Bases: No acute findings. Small hiatal hernia. Suture material at GE junction. Liver: Enlarged. Normal density. No measurable mass. Gallbladder and biliary tract: No radiodense calculus or dilation. Pancreas: Normal density. No abnormal calcifications or inflammatory process. No evidence of mass. Spleen: Normal. Kidneys: Normal size, contour and axis. No radiodense stones. No obstructive uropathy. No suspicious masses seen. Adrenal glands: No masses seen. Vasculature: Abdominal aorta non-dilated. Soft tissues: Minimal amount of air in the lower left abdominal wall. Bladder: Mild wall thickening adjacent to abscess. No evidence of fistula. Somewhat improved from p rior. No calculi.No focal mass. Bowel: Suture material at stomach. Moderate quantity of stool. No obstruction. Some improvement i n inflammation sigmoid colon adjacent to the abscess. Appendix normal. Peritoneal cavity: No ascites. Abscess again noted superior to cervix. There are surgical clips in the area. The abscess measures 5.5 x 4.0 By 3.6 cm, with slight interval decrease from prior. Agai n the colon is directly adjacent to this area and fistula is not excluded. No new abscesses or evide nce of perforation. Bones: Unremarkable for age. Reproductive organs: Status post hysterectomy. Lymph nodes: Unremarkable. IMPRESSION:: Mild interval decrease in size of previously noted pelvic abscess. Some improvement in surrounding inflammation. No new abnormalities. RADIATION DOSE DELIVERED: 1,256.74mGy.cm Total DLP DATA REPOSITORY: All CT scans at this facility are submitted to the National Radiology Data Registry (NRDR) Dose Index Registry (DIR) with the [employer] (ACR). RADIATION OPTIMIZATION: All CT scans at this facility use at least one of these dose optimization te chniques: automated exposure control; mA and/or kV adjustment per patient size (includes targeted exa ms where dose is matched to clinical indication); or iterative reconstruction.
--- NOTE | 2023-12-15 08:10 | W.PM.PROGNOT ---
Date of Service Date of service: 12/15/23 Time of Service: 10:00 Assessment and Plan Assessment and plan (1) Postoperative abscess of pelvis in female: Status: Acute Assessment and plan: 48-year-old woman with a pelvic abscess. She is hemodynamically stable. Overall her symptoms are pretty minimal. I looked at her repeat CT scan. There is slight decrease in size of the abscess but overall looks mostly the same coming at 5.5 cm. Since she still has symptoms I recommend an IR consultation for down and back percutaneous drainage. I counseled the patient she will probably have the drain for 10 to 14 days and she can complete an antibiotic course for total of 7 days. She can follow-up in the surgery office for drain removal. She should be n.p.o. prior to her procedure. If she gets scheduled tomorrow, she can have a regular diet and then be n.p.o. at midnight. Continue/maintain DVT prophylaxis since she is at high risk for developing DVT with this condition. Nonnarcotic analgesia Subjective Subjective Interval history since last seen: At the bedside the patient says she feels the same. Nothing is worse but she does not feel any better. Overall symptoms are pretty mild but present constantly. No fevers overnight. Tolerating a diet. Exam Narrative Exam Narrative: General: Nontoxic, comfortable and interactive. Appears to be resting comfortably. Neuro: Alert and oriented x 3 Psych: Good mood and affect, good insight and understanding Chest: Nonlabored breathing Heart: Regular Objective Last Vital Signs Temp 98.1 F 12/15/23 06:12 Pulse 61 12/15/23 06:12 Resp 18 12/15/23 06:12 BP 125/71 12/15/23 06:12 Pulse Ox 98 12/14/23 17:30 Laboratory Results - last 24 hr 12/14/23 08:20 WBC 5.97 RBC 3.59 L Hgb 11.0 L Hct 33.9 L MCV 94 MCH 30.6 MCHC 32.4 RDW 13.9 Plt Count 229 MPV 9.7 Immature Gran % 0.5 Neutrophils % 75.9 Lymphocytes % 15.7 Monocytes % 4.9 Eosinophils % 2.5 Basophils % 0.5 Nucleated RBC % 0.0 Absolute Neutrophils 4.53 Absolute Lymphocytes 0.94 L Absolute Monocytes 0.29 Absolute Eosinophils 0.15 Absolute Basophils 0.03 Time Spent with Patient Time Spent with Patient: <25 minutes Time was spent: referring, communicating with other health customer care consultant, indepentently interpreting results, counseling the patient and care coordination
[2023-12-15] MEDS: Normal Saline - Diluent 50 ML VIAL IJ ×2 (08:29→08:34)
[2023-12-15] MEDS: Omnipaque 350 MG/ML 500 ML BTL-Imaging package IJ (08:32)
[2023-12-15] MEDS: Heparin 5,000 UNITS/ML VIAL 5000 UNITS SC (08:51)
[2023-12-15] MEDS: Docusate Sodium 100 MG CAP PO (08:53)
[2023-12-15] MEDS: buPROPion-XL 150 MG TABCR PO (08:53)
[2023-12-15] MEDS: Cetirizine 10 MG TAB PO ×2 (08:53→20:03)
[2023-12-15] MEDS: Citalopram 20 MG TAB 40 MG PO (08:53)
[2023-12-15] MEDS: Ibuprofen 600 MG TAB PO ×3 (09:38→22:01)
--- NOTE | 2023-12-15 13:03 | PGE_ITS ---
Date of Service Date of service: 12/15/23 Time of Service: 13:03 Assessment and Plan Assessment and plan (1) Status post laparoscopic assisted vaginal hysterectomy (LAVH): Status: Acute Assessment and plan: Awaiting recommendation from interventional radiology for down and back procedure for drainage of pelvic abscess. (2) Postoperative abscess of pelvis in female: Status: Acute Subjective Subjective Interval history since last seen: Patient seen and examined and plan of care again discussed with the patient and her . Overall she is feeling somewhat unchanged. Pain is reasonably well-controlled. She has slight nausea though no vomiting. She continues to have flatus. Urine output is appropriate. Vital signs are stable. CT scan shows minimal improvement in the fluid collection in her pelvis. In light of this, contact with [facility] for interventional radiology services has been made through 1 call and images have been pushed to the interventional radiology team. Currently awaiting callback. At this point, we will continue with her n.p.o. status until her images are reviewed. Objective Last Vital Signs Temp 97.9 F 12/15/23 11:30 Pulse 53 L 12/15/23 11:30 Resp 16 12/15/23 11:30 BP 123/77 12/15/23 11:30 Pulse Ox 100 12/15/23 11:30 Time Spent with Patient Time Spent with Patient: 25-34 minutes Time was spent: preparing to see the patient(eg.review tests), obtaining and/or reviewing separately otained hiistory, referring, communicating with other health ostomy care nurse, counseling the patient and care coordination
--- NOTE | 2023-12-15 14:25 | W.PM.PROGNOT ---
Date of Service Date of service: 12/15/23 Time of Service: 14:25 Assessment and Plan Assessment and plan (1) Status post laparoscopic assisted vaginal hysterectomy (LAVH): Status: Acute Assessment and plan: 8 days status post LAVH with pelvic abscess. Attempting to arrange interventional radiology drainage at [facility] in the near future. New orders placed. Will be n.p.o. after midnight. (2) Postoperative abscess of pelvis in female: Status: Acute Subjective Subjective Interval history since last seen: Spoke with Dr. Duran Trejo, interventional radiologist at [facility]. They will attempt to arrange a down and back procedure for interventional radiology drainage of her pelvic abscess. At his request, patient will have coagulation studies, platelet count, and have her heparin held as of now. The hope is that we will be able to arrange a down and back procedure for tomorrow, 12/16/2023. This was discussed with the patient and her . She will be allowed to eat tonight, and the n.p.o. after midnight tonight. Objective Last Vital Signs Temp 97.9 F 12/15/23 11:30 Pulse 53 L 12/15/23 11:30 Resp 16 12/15/23 11:30 BP 123/77 12/15/23 11:30 Pulse Ox 100 12/15/23 11:30 Time Spent with Patient Time Spent with Patient: 25-34 minutes Time was spent: preparing to see the patient(eg.review tests), ordering medications,tests, procedures, referring, communicating with other health acute care surgeon, indepentently interpreting results, counseling the patient and care coordination
[2023-12-15 15:17] LABS: Abs Immature Grans 0.01 10^3/uL (0.0-0.06); Absolute Basophil Count 0.02 10^3/uL (0.0-0.2); Absolute Eosinophil Count 0.17 10^3/uL (0.0-0.7); Absolute Lymphocyte Count 1.31 10^3/uL (1.2-3.4); Absolute Neutrophil Count 2.52 10^3/uL (1.2-6.7); Basophils % 0.5; Eosinophils % 3.9; HCT 31.1 % (36.0-46.0); HGB 10.7 g/dL (11.2-15.7); Immature Grans % 0.2; Lymphocytes % 30.3; MCH 31.8 pg (27.0-33.0); MCHC 34.4 % (32.0-36.0); MCV 92 fL (80-95); MPV 9.8 fL (8.0-11.0); Monocytes % 6.9; Neutrophils % 58.2; Platelet Count 253 10^3/uL (130-400); RBC 3.37 10^6/uL (3.93-5.22); RDW 13.5 % (11.7-14.6); RDW-SD 45.7 fL; WBC 4.33 10^3/uL (4.4-10.8)
[2023-12-15 15:28] LABS: PTT Activated 27.2 sec (23.6-32.8); Prothrombin Time 10.5 sec (9.1-11.1)
[2023-12-15] MEDS: Acetaminophen 500 MG TAB 1000 MG PO ×2 (16:02→20:03)
[2023-12-15] MEDS: Normal Saline 1,000 ML 70 ML IV (16:06)
[2023-12-15] MEDS: Normal Saline Flush 10 ML SYR IVP (20:04)
[2023-12-16] MEDS: PIPERACILLIN/TAZO 4.5 GM in Normal Saline 100 ML IVPB ×3 (02:03→17:31)
[2023-12-16 02:05] VITALS: BP 117/51; PULSE 62; RESP 16; TEMP 36.9; O2SAT 100
[2023-12-16] MEDS: Normal Saline 1,000 ML 70 ML IV (06:04)
[2023-12-16] MEDS: Ibuprofen 600 MG TAB PO ×3 (06:06→23:55)
[2023-12-16] MEDS: Levothyroxine 150 MCG TAB PO (06:06)
[2023-12-16 06:07] VITALS: BP 109/58; PULSE 60; RESP 17; TEMP 36.9; O2SAT 100
[2023-12-16] MEDS: Famotidine 20 MG TAB PO ×2 (08:01→17:12)
[2023-12-16] MEDS: Pantoprazole 40 MG TABCR PO ×2 (08:01→17:12)
[2023-12-16] MEDS: Docusate Sodium 100 MG CAP PO (08:47)
[2023-12-16] MEDS: Acetaminophen 500 MG TAB 1000 MG PO ×2 (08:47→23:55)
[2023-12-16] MEDS: Citalopram 20 MG TAB 40 MG PO (08:48)
[2023-12-16] MEDS: Cetirizine 10 MG TAB PO ×2 (08:50→20:17)
[2023-12-16] MEDS: buPROPion-XL 150 MG TABCR PO (08:50)
[2023-12-16 09:36] VITALS: BP 135/59; PULSE 54; RESP 12; TEMP 36.5; O2SAT 98
[2023-12-16 15:55] VITALS: BP 127/71; PULSE 56; RESP 16; TEMP 36.4; O2SAT 100
--- NOTE | 2023-12-16 16:36 | W.PM.PROGNOT ---
Date of Service Date of service: 12/16/23 Time of Service: 16:36 Assessment and Plan Assessment and plan (1) Postoperative abscess of pelvis in female: Status: Acute Assessment and plan: POD#10 s/p LAVH, HD#4 s/p readmission for a pelvic abscess, POD#0 s/p IR drainage of the abscess. Pt remains afebrile, she is on Zosyn q6hrs. Her pain is well controlled on tylenol and ibuprofen. She does report some left thigh pain since the procedure that I suspect is related to positioning but we will monitor it. Hopeful d/c tomorrow am. (2) Status post laparoscopic assisted vaginal hysterectomy (LAVH): Status: Acute Subjective Subjective Interval history since last seen: Pt recently returned from having IR drainage of her pelvic abscess at [facility]. They identified a 4cm collection and drained 10cc and left a drain in place. She says she is feeling a little less pelvic pressure than before. She states pain is minimal though she does report a deep pain in her left thigh that is worse with movement. She has not had any pain medication since the procedure. She did miss her abx dose that was due at 1400. She says she has no nausea and has a bit of an appetite. She is having very minimal vaginal spotting. Exam Const General: cooperative, healthy appearing and no acute distress [facility] Head: normocephalic and atraumatic Ears: hearing grossly normal bilaterally Resp Effort & Inspection: normal respiratory effort and able to speak in complete sentences GI Other: Mildly tender to palpation of lower abdomen. Incisions healing well. Back/Spine/Pelvis Other: Drain in place in left flank. Minimal bloody drainage noted in catheter. Neuro General: patient alert and patient awake Extrem Other: No significant tenderness to left thigh. No bruising or obvious abnormalities. Psych Appearance: grossly normal Mental Status: mental status grossly normal Speech and Movement: speech and movement normal Affect: normal affect Attitude: cooperative Thought Process: normal Thought Content: normal Objective Last Vital Signs Temp 97.5 F L 12/16/23 15:55 Pulse 56 L 12/16/23 15:55 Resp 16 12/16/23 15:55 BP 127/71 12/16/23 15:55 Pulse Ox 100 12/16/23 15:55 Time Spent with Patient Time Spent with Patient: 25-34 minutes Time was spent: preparing to see the patient(eg.review tests), obtaining and/or reviewing separately otained hiistory, referring, communicating with other health acute care physical therapist and counseling the patient
[2023-12-16] MEDS: Normal Saline Flush 10 ML SYR IVP ×2 (17:30→20:17)
[2023-12-16] MEDS: Normal Saline 1,000 ML 125 ML IV (17:30)
[2023-12-16 20:19] VITALS: BP 115/53; PULSE 71; RESP 17; TEMP 36.8; O2SAT 100
[2023-12-16] MEDS: Sulfameth/Trimeth DS TAB 1 TAB PO (22:07)
[2023-12-16] MEDS: Heparin 5,000 UNITS/ML VIAL 5000 UNITS SC (23:53)
[2023-12-16 23:59] VITALS: BP 119/57; PULSE 77; RESP 17; TEMP 36.8; O2SAT 100
[2023-12-17] MEDS: Ibuprofen 600 MG TAB PO ×2 (05:54→11:37)
[2023-12-17] MEDS: Acetaminophen 500 MG TAB 1000 MG PO ×2 (05:55→11:36)
[2023-12-17] MEDS: Levothyroxine 150 MCG TAB PO (05:55)
[2023-12-17 05:58] VITALS: BP 113/62; PULSE 58; RESP 17; TEMP 36.8; O2SAT 100
[2023-12-17 08:15] VITALS: BP 120/53; PULSE 59; RESP 16; TEMP 36.7; O2SAT 98
[2023-12-17] MEDS: Heparin 5,000 UNITS/ML VIAL 5000 UNITS SC (08:17)
[2023-12-17] MEDS: Normal Saline Flush 10 ML SYR IVP (08:18)
[2023-12-17] MEDS: Famotidine 20 MG TAB PO (08:18)
[2023-12-17] MEDS: Docusate Sodium 100 MG CAP PO (08:18)
[2023-12-17] MEDS: Pantoprazole 40 MG TABCR PO (08:18)
[2023-12-17] MEDS: Cetirizine 10 MG TAB PO (08:18)
[2023-12-17] MEDS: buPROPion-XL 150 MG TABCR PO (08:18)
[2023-12-17] MEDS: Citalopram 20 MG TAB 40 MG PO (08:18)
--- NOTE | 2023-12-17 08:32 | W.PM.PROGNOT ---
Date of Service Date of service: 12/17/23 Time of Service: 09:30 Assessment and Plan Assessment and plan (1) Postoperative abscess of pelvis in female: Status: Acute Assessment and plan: 48-year-old woman who has a pelvic abscess that was drained by IR yesterday. As anticipated she has had significant symptom improvement. Overall recommendations: Drain teaching Drain for couple of weeks - she can have the drain removed in the surgery office Oral antibiotics for another 5 days Doubtful any other intervention will be necessary and this should lead to a complete recovery Subjective Subjective Interval history since last seen: Patient feels a lot better today. Had her drainage procedure yesterday. Exam Narrative Exam Narrative: General: Nontoxic, comfortable and interactive, appears improved visually Neuro: Alert and oriented x 3 Psych: Good mood and affect, good insight and understanding into her condition Objective Last Vital Signs Temp 98.2 F 12/17/23 05:58 Pulse 58 L 12/17/23 05:58 Resp 17 12/17/23 05:58 BP 113/62 12/17/23 05:58 Pulse Ox 100 12/17/23 05:58 Time Spent with Patient Time Spent with Patient: <25 minutes Time was spent: counseling the patient and care coordination
--- NOTE | 2023-12-17 09:31 | W.PM.PROGNOT ---
Date of Service Date of service: 12/17/23 Time of Service: 09:31 Assessment and Plan Assessment and plan (1) Status post laparoscopic assisted vaginal hysterectomy (LAVH): Status: Acute Assessment and plan: Postoperative day #10 status post laparoscopically assisted vaginal hysterectomy with bilateral salpingectomy. Postoperative course complicated by pelvic abscess which is now been drained in interventional radiology. She has completed 5 of a 14-day course of antibiotics. She will be discharged home on Augmentin, with additional Diflucan. Slight pain control as needed. She will be seen back in the office in approximately 4 days time, and follow-up with interventional radiology as scheduled. All questions were answered today. (2) Postoperative abscess of pelvis in female: Status: Acute Subjective Subjective Interval history since last seen: Patient seen and examined this morning. Overall doing well. Pain is well-controlled with oral pain medication. Vital signs are stable. She remains afebrile. She has been transitioned to from parenteral to oral antibiotic therapy. Her Dejuan-Armenta drain is in place and teaching is underway. Overall she is feeling better. Appetite is improving. She continues to pass flatus. She is having normal urinary output with no vaginal bleeding. She will be discharged to home today. Exam Const General: cooperative, healthy appearing, comfortable and no acute distress Nutritional Appearance: average body habitus HENMT Head: normal to inspection Eyes General: appearance normal, both eyes and all related structures Resp Effort & Inspection: normal respiratory effort, no audible wheezes and no cough Cardio Rate: regular rate Rhythm: regular rhythm GI Inspection: normal to inspection, no edema and incision Skin General skin exam: no rashes or lesions noted Neuro General: patient alert and patient oriented x3 Extrem General: normal to inspection, no clubbing, cyanosis or edema and no calf tenderness Objective Last Vital Signs Temp 98.1 F 12/17/23 08:15 Pulse 59 L 12/17/23 08:15 Resp 16 12/17/23 08:15 BP 120/53 L 12/17/23 08:15 Pulse Ox 98 12/17/23 08:15 Time Spent with Patient Time Spent with Patient: 35-49 minutes Time was spent: preparing to see the patient(eg.review tests), obtaining and/or reviewing separately otained hiistory, ordering medications,tests, procedures, referring, communicating with other health child day care teacher, indepentently interpreting results and counseling the patient
--- NOTE | 2023-12-17 09:34 | DSE_ITS ---
Date of service: 12/17/23 Time of Service: 09:34 DS: Diagnosis Discharge Diagnosis (1) Status post laparoscopic assisted vaginal hysterectomy (LAVH): Status: Acute Asessment and Plan: Postoperative day #10 status post laparoscopically assisted vaginal hysterectomy with bilateral salpingectomy. Postoperative course complicated by pelvic abscess. (2) Postoperative abscess of pelvis in female: Status: Acute Asessment and Plan: Day #5 status post parenteral antibiotics, day 1 status post drainage of pelvic abscess and interventional radiology. Discharge home today. Continue current care. Continue oral antibiotics for a complete 14-day course. She will be seen in the office in approximately 4 days time for reevaluation, and for the appropriate removal of her drain. Discharge Plan Disposition Patient Disposition: Home Condition: Improving Discharge Details Reason For Visit: Post op cuff abscess Admit Date/Time: 12/12/23 22:27 Admit Provider: Anny Gomez Attending Provider: Anny Gomez Primary Care Provider: Nabor Charles Hospital Course Hospital Course: Patient was readmitted to the hospital postoperative day #5 status post laparoscopically assisted vaginal hysterectomy with bilateral salpingectomy due to pelvic pain, fever, and fluid collection on CT scan. She was initially placed empirically on IV antibiotics. She did defervesce and her white blood cell count normalized. General surgery consultation was undertaken as well for further recommendations. On hospital day 4, and postoperative day 9, she was sent to [facility] for CT-guided drainage of her fluid collection with interventional radiology. CT scan performed today of drain placement had diminished to 4 cm. Catheter was placed and she will do daily flushing of the catheter and monitor the amount of fluid and return. She will complete a 14-day course of oral antibiotics. She was transitioned to p.o. antibiotics and will go home on Augmentin, 875 mg twice daily. She will also have pain medication which includes Percocet and Tylenol as needed. She will be seen back in the office in 4 days for reevaluation. She does have a follow-up appointment with interventional radiology at [facility] on 01/02/2024. Home Meds and New Rx's Prescriptions: New amoxicillin-pot clavulanate 875-125 mg tablet 1 tab PO Q12H Qty: 20 0RF oxycodone-acetaminophen [Percocet] 5-325 mg tablet 1 tab PO TID PRNQty: 10 0RF fluconazole 150 mg tablet 150 mg PO Q3D Qty: 2 1RF docusate sodium [Colace] 100 mg capsule 100 mg PO BID Qty: 60 0RF Continued cetirizine-pseudoephedrine [Zyrtec-D] 1 EACH tablet extended release 12 hr 1 ea PO BID omeprazole 40 MG capsule,delayed release(DR/EC) 40 mg PO DAILY levothyroxine [Synthroid] 150 MCG tablet 150 mcg PO DAILY bupropion HCl [Wellbutrin XL] 150 MG tablet extended release 24 hr 150 mg PO DAILY multivitamin [Daily Multi-Vitamin] 1 EACH tablet 1 ea PO DAILY epinephrine [EpiPen 2-Jignesh] 0.3 MG/0.3 ML auto-injector 0.3 mg IM ONCE cholecalciferol (vitamin D3) [Vitamin D3] 2,000 UNIT capsule 2,000 unit PO DAILY sumatriptan succinate [Imitrex] 50 MG tablet 50 mg PO PRN Zyrtec 10 MG capsule 10 mg PO BID oxycodone-acetaminophen [Percocet] 5-325 mg tablet 1 tab PO Q8H MDD 4 PRN (Reason: pain) Qty: 7 0RF citalopram 40 mg tablet 40 mg PO DAILY ibuprofen 800 mg tablet 800 mg PO Q8H PRNQty: 60 1RF docusate sodium [Colace] 100 mg capsule 100 mg PO DAILY Qty: 30 0RF famotidine 20 mg tablet 20 mg PO BID Patient Comments: TAKE 1 TABLET BY MOUTH TWICE DAILY pantoprazole 40 mg tablet,delayed release (DR/EC) 40 mg PO BID Patient Comments: TAKE 1 TABLET BY MOUTH TWICE DAILY Discharge Instructions Additional Instructions: Follow-up with Dr. Gomez 12/22/2023. Follow-up with [facility] interventional radiologist as scheduled 01/02/2024 Record RENARD drain output daily. Flush RENARD drain daily. Instructions given. Activity:: Pelvic rest Equipment/Supplies:: No Equipment Needed Diet:: As Tolerated Discharge Orders Discharge Orders: Discharge Order (Routine); Ordered 12/17/23 Ordered By: Anny Gomez DS: Summary Time Spent with Patient providing and/or coordinating discharge services: Greater than 30 minutes Status at Discharge Functional status at discharge: independent ambulation Overall status at discharge: patient is progressing back to baseline Mental Status: mental status grossly normal Speech and Movement: speech and movement normal Mood: congruent mood Affect: normal affect Quality:SDOH Health Related Social Needs: No Data to Display Exam Narrative Exam Narrative: See physical examination from progress note dated 12/17/2023. Psych Mental Status: mental status grossly normal Speech and Movement: speech and movement normal Mood: congruent mood Affect: normal affect DS: Data Vitals/I&O Vitals and I&O: Vital Signs Temperature 98.1 F 12/17/23 08:15 Temperature Source Tympanic 12/17/23 08:15 Pulse 59 L 12/17/23 08:15 Pulse Rhythm Regular 12/17/23 08:15 Respiratory Rate 16 12/17/23 08:15 Respiratory Effort Normal, Non-Labored 12/17/23 08:15 Respiratory Depth Normal 12/17/23 08:15 Respiratory Pattern Normal 12/17/23 08:15 Blood Pressure 120/53 L 12/17/23 08:15 Blood Pressure Position Sitting 12/12/23 19:34 Pulse Oximetry 98 12/17/23 08:15 Oxygen Delivery Method Room Air 12/17/23 08:15 Oxygen Flow Rate 0 12/17/23 08:15 End Tidal Co2 4 12/12/23 19:34 Pain Level 1 12/17/23 08:15 Comment Patient also has a complaint of dull pain in her left thigh. No redness or swelling noted. 12/16/23 15:55 Intake & Output 12/16/23 12/16/23 12/17/23 11:59 23:59 11:59 Intake Total 1513.667 / 2229.667 716 / 2229.667 Output Total 1100 / 2700 1600 / 2700 316 / 316 Balance 413.667 / -470.333 -884 / -470.333 -310 / -310 Intake: IV 1513.667 / 1629.667 116 / 1629.667 Oral 600 / 600 Injectate Left Upper Sacrum Output: Drainage Left Upper Sacrum Urine 1100 / 2700 1600 / 2700 300 / 300 Other: Urine Color Yellow Yellow Urine Appearance Clear Clear Clear Urine Odor None Data Completed and Pending Labs on day of discharge: Preliminary micro results at discharge 12/12/23 20:13 Blood Culture - Preliminary Blood NO GROWTH 96 HOURS 12/12/23 20:00 Blood Culture - Preliminary Blood NO GROWTH 96 HOURS PFSH All Active Problems (Updated 12/17/23 @ 09:33 by Anny Gomez DO) Postoperative fever (Acute) Postoperative abscess of pelvis in female (Acute) Status post percutaneous drainage per interventional radiology at [facility] on 12/16/2023 Status post laparoscopic assisted vaginal hysterectomy (LAVH) (Acute) LAVH with bilateral salpingectomy 12/07/2023. Secondary to symptomatic uterine fibroids, and abnormal uterine bleeding. Mast cell activation, unspecified (Acute) [facility] [place]. History of Urticaria and anaphylaxis. 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 Hx of mammogram Other symptoms involving skin and integumentary tissues Sciatica Psychogenic headache Psoriasis Hypothyroid GERD (gastroesophageal reflux disease) Disorder of hyperalimentation Excessive daytime sleepiness Obesity with body mass index (BMI) of 30.0 to 39.9 Depressive disorder Witnessed apneic spells Morbid obesity with BMI of 40.0-44.9, adult Snoring History of sleeve gastrectomy Hyperlipidemia, unspecified Diarrhea Claustrophobia Anxiety state Migraine without aura Urticaria Other specified hypothyroidism Obstructive sleep apnea Non-restorative sleep Surgical History (Updated 12/09/23 @ 00:04 by JANINE SIMPSON) History of tubal ligation Hx of gastric bypass Family History Mother Essential hypertension Father Depression Heart disease Myocardial infarction 40's Brother Hypertension Grandmother , [place] at age 80. Myocardial infarction in her 80's from an [place] Breast cancer Other Obesity Substance abuse Social History Smoking/Tobacco Use Status: Never Smoking risk assessment performed?: Yes Alcohol Intake: never Drug use: Never Substance use type: does not use Housing: house Do you feel safe at home: Yes Do you feel safe in your relationship?: Yes History History 5 Para 3 Hx # Term Pregnancies 3 Multiple births Hx # Pregnancies Ectopic pregnancies AB induced Hx Number of Living Children 3 AB spontaneous Time Spent with Patient Time Spent with Patient: 45-69 minutes Time was spent: preparing to see the patient(eg.review tests), obtaining and/or reviewing separately otained hiistory, ordering medications,tests, procedures, referring, communicating with other health spiritual care coordinator, indepentently interpreting results, counseling the patient and care coordination
[2023-12-17] MEDS: Sulfameth/Trimeth DS TAB 1 TAB PO (10:30)
== END 2023-12-17 13:20 | disposition home or self-care (01) | DRG 863 ==
LOC: ER 21:47 → OBS 22:34
PROVIDERS: Admitting Provider Obstetrics & Gynecology; Emergency Provider Physician Assistant; PCP Registered Nurse; Visit Provider Obstetrics & Gynecology
DX: T81.43XA Infection following a procedure, organ and space surgical site, initial encounter (principal); N73.0 Acute parametritis and pelvic cellulitis; Z90.710 Acquired absence of both cervix and uterus; D89.40 Mast cell activation, unspecified; G47.33 Obstructive sleep apnea (adult) (pediatric); E66.9 Obesity, unspecified; E78.5 Hyperlipidemia, unspecified; F32.A Depression, unspecified; F41.9 Anxiety disorder, unspecified; E03.9 Hypothyroidism, unspecified; F40.240 Claustrophobia; L40.9 Psoriasis, unspecified; K21.9 Gastro-esophageal reflux disease without esophagitis; Z98.84 Bariatric surgery status; G43.009 Migraine without aura, not intractable, without status migrainosus
CPT/HCPCS: 00123; 36415; 80053; 83690; 84145; 85027; 85652; 87040; 96365; 96366; 96368; 96375; 99285; 74177; 81003; 81015; 83605; 83735; 84484; 85025; 85610; 85730; 86140; 87086; J0131; J1644; J1836; J1885; J2543; J3490; Q9967